=== PATIENT | female | born 1970 | race African-American/Black ===

== ENCOUNTER 2018-07-22 15:53 | Inpatient (IN) | payer BC, OTHER ==
--- NOTE | 2018-07-22 16:08 | ER Document Report ---
ED Medical Screen (RME) - General Chief Complaint: Vaginal Bleeding Stated Complaint: VAGINAL BLEEDING Time Seen by Provider: 07/22/18 16:00 Primary Care Provider: SHAHRAM KERR FNP-C [Primary Care Provider] - Follow up as needed Mode of Arrival: Ambulatory Information source: Patient Notes: Patient presents today with report that her provider sent her here for low hemoglobin. Patient reports she has been having heavy menstrual bleeding for the past months. She was told that her hemoglobin was 5.7. No other complaints such as fever vomiting diarrhea. She reports when she has her menses she has cramps. No bleeding or cramps at this time. I have greeted and performed a rapid initial assessment of this patient. A comprehensive ED assessment and evaluation of the patient, analysis of test results and completion of the medical decision making process will be conducted by additional ED providers. Dictation of this chart was performed using voice recognition software; therefore, there may be some unintended grammatical errors. TRAVEL OUTSIDE OF THE [place] IN LAST 30 DAYS: No - Related Data Allergies/Adverse Reactions: acetaminophen [From Darvocet-N 100] Allergy (Verified 07/22/18 15:53) aspirin [Aspirin] Allergy (Verified 07/22/18 15:53) buspirone HCl [From BuSpar] Allergy (Verified 07/22/18 15:53) clindamycin [Clindamycin] Allergy (Verified 07/22/18 15:53) codeine [Codeine] Allergy (Verified 07/22/18 15:53) erythromycin base [Erythromycin Base] Allergy (Verified 07/22/18 15:53) fluoxetine HCl [From Prozac] Allergy (Verified 07/22/18 15:53) imipramine [Imipramine] Allergy (Verified 07/22/18 15:53) nitrofurantoin [From Macrobid] Allergy (Verified 07/22/18 15:53) nitrofurantoin macrocrystalline [From Macrobid] Allergy (Verified 07/22/18 15:53) paroxetine HCl [From Paxil] Allergy (Verified 07/22/18 15:53) Penicillins Allergy (Verified 07/22/18 15:53) propoxyphene napsylate [From Darvocet-N 100] Allergy (Verified 07/22/18 15:53) Sulfa (Sulfonamide Antibiotics) Allergy (Verified 07/22/18 15:53) dairy Allergy (Uncoded 07/22/18 15:53) seafood Allergy (Uncoded 07/22/18 15:53) Past Medical History - Social History Family history: DM, Hypertension, Malignancy - colon Renal/ Medical History: Denies: Hx Peritoneal Dialysis Psychiatric Medical History: Reports: Hx Anxiety - panic attacks Past Surgical History: Reports: Hx Section, Hx Cholecystectomy, Hx Tubal Ligation - Immunizations Immunizations up to date: Yes Hx Diphtheria, Pertussis, Tetanus Vaccination: Yes Doctor's Discharge - Discharge Referrals: SHAHRAM KERR FNP-C [Primary Care Provider] - Follow up as needed
[2018-07-22 16:39] LABS: ABSOLUTE MONOCYTES (AUTO) 0.3 10^3/uL (0.1-1.4); ABSOLUTE NEUT (AUTO) 2.9 10^3/uL (1.7-8.2); BASOPHILS % (AUTO) 1.2 % (0-2); EOSINOPHILS % (AUTO) 0.4 % (0-6); HEMATOCRIT 19.6 % (36.0-47.0); LYMPHOCYTES % (AUTO) 23.5 % (13-45); MEAN CORPUSCULAR HEMOGLOBIN 17.1 pg (27.0-33.4); MEAN CORPUSCULAR HGB CONC 26.9 g/dL (32.0-36.0); MONOCYTES % (AUTO) 6.9 % (3-13); PLATELET COUNT 349 10^3/uL (150-450); RED BLOOD COUNT 3.07 10^6/uL (3.72-5.28); RED CELL DISTRIBUTION WIDTH 18.2 % (11.5-14.0); TOTAL CELLS COUNTED % (AUTO) 100 %; WHITE BLOOD COUNT 4.2 10^3/uL (4.0-10.5)
[2018-07-22 16:42] LABS: MEAN CORPUSCULAR VOLUME 64 fl (80-97)
[2018-07-22 16:46] LABS: HEMOGLOBIN 5.3 g/dL (12.0-15.5)
[2018-07-22 16:56] LABS: ALANINE AMINOTRANSFERASE 25 U/L (9-52); ALBUMIN 4.3 g/dL (3.5-5.0); ALKALINE PHOSPHATASE 58 U/L (38-126); ANION GAP 11 (5-19); ASPARTATE AMINO TRANSFERASE 25 U/L (14-36); BILIRUBIN,DIRECT 0.2 mg/dL (0.0-0.4); BILIRUBIN,TOTAL 0.4 mg/dL (0.2-1.3); BLOOD UREA NITROGEN 6 mg/dL (7-20); CALCIUM 9.7 mg/dL (8.4-10.2); CARBON DIOXIDE 26 mmol/L (22-30); CHLORIDE 104 mmol/L (98-107); GLUCOSE 97 mg/dL (75-110); POTASSIUM 3.3 mmol/L (3.6-5.0); SODIUM 140.6 mmol/L (137-145)
[2018-07-22 17:08] LABS: ANISOCYTOSIS 2+; HYPOCHROMASIA 3+; POIKILOCYTOSIS 1+
[2018-07-22 17:09] LABS: PLATELET COMMENT ADEQUATE; TARGET CELLS 1+; TEAR DROP CELLS SLIGHT
[2018-07-22 17:12] LABS: INTERNATIONAL RATION (INR) 0.97; PROTHROMBIN TIME 13.4 SEC (11.4-15.4)
[2018-07-22 17:13] LABS: PARTIAL THROMBOPLASTIN TIME 33.6 SEC (23.5-35.8)
[2018-07-22] MEDS ORDERED: LORAZEPAM INJ 2 MG/1 ML VIAL IV ONE (17:48)
--- NOTE | 2018-07-22 17:50 | RADIOLOGY REPORT (SQ) ---
EXAM DESCRIPTION: U/S NON-OB PELVIS W/O DOP COMPLETED DATE/TIME: 07/22/2018 5:39 pm REASON FOR STUDY: vag bleeding, ?fibroids LMP 07/07/2018 COMPARISON: None. TECHNIQUE: Dynamic and static grayscale images acquired of the pelvis via transabdominal approach an d recorded on PACS. Additional selected color Doppler and spectral images recorded. LIMITATIONS: None. FINDINGS: UTERUS: Enlarged. Multiple fibroids. The 2 largest measure 10.8 cm in largest diameter a nd 6.9 cm in largest diameter, respectively. ENDOMETRIAL STRIPE: Not seen. CERVIX: 2.5 cm. No nabothian cysts. RIGHT OVARY AND DOPPLER: The ovary not seen. LEFT OVARY AND DOPPLER: Ovary not seen. FREE FLUID: None noted. OTHER: No other significant finding. MEASUREMENTS: UTERUS: 15.6 x 15 x 10.4 cm. ENDOMETRIAL STRIPE: Not seen. RIGHT OVARY: Not seen. LEFT OVARY: Not seen. IMPRESSION: Enlarged uterus with multiple fibroids. TECHNICAL DOCUMENTATION: JOB ID: [id number] [email or web address]- All Rights Reserved Rev Reading location - IP/workstation name: [email or web address]
[2018-07-22] MEDS ORDERED: NORMAL SALINE 250 ML IV PRN (18:07)
--- NOTE | 2018-07-22 18:09 | ER Document Report ---
ED General - General Chief Complaint: Vaginal Bleeding Stated Complaint: VAGINAL BLEEDING Time Seen by Provider: 07/22/18 16:00 Mode of Arrival: Ambulatory Information source: Patient Notes: Patient presents with a report of anemia. Patient has had outpatient lab work done by her primary doctor and was called today and advised of her low H&H. Patient denies any abnormal bleeding or bruising. Patient does report heavy vaginal bleeding with her menstrual cycle that she has been experiencing over the past 7 months. Patient is presently not on her menstrual cycle. Patient denies any chest pain, dizziness or shortness of breath. Patient does complain of a history of anxiety and feels anxious now. TRAVEL OUTSIDE OF THE [place] IN LAST 30 DAYS: No - HPI Onset/Duration: Gradual Quality of pain: No pain Pain Level: Denies Associated symptoms: denies: Chest pain, Nonproductive cough, Productive cough, Fever, Headache, Nausea, Vomiting, Shortness of breath Exacerbated by: Denies Relieved by: Denies Similar symptoms previously: No Recently seen / treated by doctor: Yes - Related Data Allergies/Adverse Reactions: acetaminophen [From Darvocet-N 100] Allergy (Verified 07/22/18 15:53) aspirin [Aspirin] Allergy (Verified 07/22/18 15:53) buspirone HCl [From BuSpar] Allergy (Verified 07/22/18 15:53) clindamycin [Clindamycin] Allergy (Verified 07/22/18 15:53) codeine [Codeine] Allergy (Verified 07/22/18 15:53) erythromycin base [Erythromycin Base] Allergy (Verified 07/22/18 15:53) fluoxetine HCl [From Prozac] Allergy (Verified 07/22/18 15:53) imipramine [Imipramine] Allergy (Verified 07/22/18 15:53) nitrofurantoin [From Macrobid] Allergy (Verified 07/22/18 15:53) nitrofurantoin macrocrystalline [From Macrobid] Allergy (Verified 07/22/18 15:53) paroxetine HCl [From Paxil] Allergy (Verified 07/22/18 15:53) Penicillins Allergy (Verified 07/22/18 15:53) propoxyphene napsylate [From Darvocet-N 100] Allergy (Verified 07/22/18 15:53) Sulfa (Sulfonamide Antibiotics) Allergy (Verified 07/22/18 15:53) dairy Allergy (Uncoded 07/22/18 15:53) seafood Allergy (Uncoded 07/22/18 15:53) Past Medical History - General Information source: Patient - Social History Smoking Status: Never Smoker Frequency of alcohol use: None Drug Abuse: None Occupation: educational assistant Family History: Reviewed & Not Pertinent Patient has suicidal ideation: No Patient has homicidal ideation: No Renal/ Medical History: Denies: Hx Peritoneal Dialysis Psychiatric Medical History: Reports: Hx Anxiety - panic attacks Past Surgical History: Reports: Hx Section, Hx Cholecystectomy, Hx Tubal Ligation - Immunizations Immunizations up to date: Yes Hx Diphtheria, Pertussis, Tetanus Vaccination: Yes Review of Systems - Review of Systems Constitutional: No symptoms reported. denies: Fever, Recent illness EENT: No symptoms reported Cardiovascular: No symptoms reported. denies: Chest pain, Palpitations, Syncope, Dizziness, Lightheaded Respiratory: No symptoms reported. denies: Cough, Short of breath Gastrointestinal: No symptoms reported. denies: Abdominal pain, Vomiting Genitourinary: No symptoms reported. denies: Dysuria, Flank pain Female Genitourinary: Heavy/abnormal periods Musculoskeletal: No symptoms reported. denies: Back pain Hematologic/Lymphatic: No symptoms reported Neurological/Psychological: Anxiety. denies: Headaches Physical Exam - Vital signs Vitals: Temp Pulse Resp BP Pulse Ox 99.1 F 109 H 18 136/79 H 100 07/22/18 16:08 07/22/18 16:08 07/22/18 16:08 07/22/18 16:08 07/22/18 16:08 - General General appearance: Appears well, Alert, Anxious In distress: None - HEENT Head: Normocephalic, Atraumatic Eyes: Normal Conjunctiva: Normal Nasal: Normal Mouth/Lips: Other - Pale gingiva Mucous membranes: Normal Pharynx: Normal Neck: Normal, Supple. No: Lymphadenopathy - Respiratory Respiratory status: No respiratory distress Chest status: Nontender Breath sounds: Normal. No: Rales, Rhonchi, Stridor, Wheezing Chest palpation: Normal - Cardiovascular Rhythm: Tachycardia Heart sounds: S1 appreciated, S2 appreciated Murmur: No - Abdominal Inspection: Normal Distension: No distension Bowel sounds: Normal Tenderness: Nontender Organomegaly: No organomegaly - Genitourinary External exam: Normal Speculum exam: Cervix closed Vaginal bleeding: None Bimanuel exam: Normal. No: Cervical motion tender, Bladder/Urethral tender, Adnexal mass, Adnexal tenderness - Back Back: Normal, Nontender. No: CVA tenderness - Extremities General upper extremity: Normal inspection, Nontender, Normal ROM General lower extremity: Normal inspection, Nontender, Normal ROM - Neurological Neuro grossly intact: Yes Cognition: Normal Francisco Coma Scale Eye Opening: Spontaneous Francisco Coma Scale Verbal: Oriented [place] Coma Scale Motor: Obeys Commands Francisco Coma Scale Total: 15 - Psychological Associated symptoms: Anxious - Skin Skin Temperature: Warm Skin Moisture: Dry Skin Color: Pale Course - Re-evaluation Re-evalutation: 07/22/18 18:[address] Wharton regarding patient presentation and diagnostic evaluation. Recommends performing pelvic examination and consulting with on-c all ANESTHESIA RESIDENT for admission. Recommends transfusing 3 units packed cells at this time. Discussed plan of care with patient. Discussed risks of transfusions. Patient is agreeable except in this wrist and is agreeable to transfusion at this time. Patient does report a history of chronic anxiety and would like something to help settle her nerves at this time. Patient does continue tachycardic although has stable blood pressure at this time. 07/22/18 18:[address] Lord regarding patient presentation. Patient is not actively having vaginal bleeding and Dr. Lord recommends consultation with hospitalist for admission versus ANESTHESIA RESIDENT services as patient's anemia may have other causes, as she is not currently having any vaginal bleeding at this time. 07/22/18 19:[address] Monroe who does agree to accept patient for admission at this time. 07/22/18 19:52 Patient was worried about taking Ativan IV and would prefer to take oral tablet form. Patient updated on plan of care at this time and is agreeable with admission. - Vital Signs Vital signs: Temp Pulse Resp BP Pulse Ox 98.1 F 78 17 106/51 L 100 07/23/18 09:33 07/23/18 09:33 07/23/18 09:33 07/23/18 09:33 07/23/18 09:33 - Laboratory Result Diagrams: 07/23/18 05:54 07/23/18 05:54 Laboratory results interpreted by me: 07/22/18 07/22/18 07/22/18 16:11 16:11 16:11 RBC 3.07 L Hgb 5.3 L Hct 19.6 L MCV 64 L MCH 17.1 L MCHC 26.9 L RDW 18.2 H Potassium 3.3 L BUN 6 L Creatinine 0.48 L Iron TIBC Ferritin Crossmatch See Detail 07/22/18 16:11 RBC Hgb Hct MCV MCH MCHC RDW Potassium BUN Creatinine Iron 18.5 L TIBC 495 H Ferritin 2.35 L Crossmatch 07/22/18 18:37 Labs- Entire Visit 07/22/18 07/22/18 07/22/18 16:11 16:11 16:11 WBC 4.2 RBC 3.07 L Hgb 5.3 L Hct 19.6 L MCV 64 L MCH 17.1 L MCHC 26.9 L RDW 18.2 H Plt Count 349 Seg Neutrophils % 68.0 Lymphocytes % 23.5 Monocytes % 6.9 Eosinophils % 0.4 Basophils % 1.2 Absolute Neutrophils 2.9 Absolute Lymphocytes 1.0 Absolute Monocytes 0.3 Absolute Eosinophils 0.0 Absolute Basophils 0.0 Platelet Comment ADEQUATE Hypochromasia 3+ Poikilocytosis 1+ Anisocytosis 2+ Microcytosis 3+ Target Cells 1+ Tear Drop Cells SLIGHT PT INR APTT Sodium 140.6 Potassium 3.3 L Chloride 104 Carbon Dioxide 26 Anion Gap 11 BUN 6 L Creatinine 0.48 L Est GFR ( Amer) > 60 Est GFR (Non-Af Amer) > 60 Glucose 97 Calcium 9.7 Total Bilirubin 0.4 Direct Bilirubin 0.2 Neonat Total Bilirubin Not Reportable Neonat Direct Bilirubin Not Reportable Neonat Indirect Bili Not Reportable AST 25 ALT 25 Alkaline Phosphatase 58 Total Protein 8.0 Albumin 4.3 POC Stool Occult Blood Blood Type O POSITIVE Antibody Screen NEGATIVE Crossmatch See Detail 07/22/18 07/22/18 16:11 17:29 WBC RBC Hgb Hct MCV MCH MCHC RDW Plt Count Seg Neutrophils % Lymphocytes % Monocytes % Eosinophils % Basophils % Absolute Neutrophils Absolute Lymphocytes Absolute Monocytes Absolute Eosinophils Absolute Basophils Platelet Comment Hypochromasia Poikilocytosis Anisocytosis Microcytosis Target Cells Tear Drop Cells PT 13.4 INR 0.97 APTT 33.6 Sodium Potassium Chloride Carbon Dioxide Anion Gap BUN Creatinine Est GFR ( Amer) Est GFR (Non-Af Amer) Glucose Calcium Total Bilirubin Direct Bilirubin Neonat Total Bilirubin Neonat Direct Bilirubin Neonat Indirect Bili AST ALT Alkaline Phosphatase Total Protein Albumin POC Stool Occult Blood NEGATIVE Blood Type Antibody Screen Crossmatch - Diagnostic Test Radiology reviewed: Reports reviewed - EKG Interpretation by Me EKG shows normal: Sinus rhythm Rate: Normal Rhythm: NSR When compared to previous EKG there are: No significant change Discharge - Discharge Clinical Impression: Hypokalemia Anemia Qualifiers: Anemia type: unspecified type Qualified Code(s): D64.9 - Anemia, unspecified Condition: Stable Disposition: ADMITTED OBSERVATION Admitting Provider: Mabel (Hospitalist)
[2018-07-22] MEDS ORDERED: POTASSIUM CHLORIDE 20 MEQ PACKET PO ONE (18:37)
[2018-07-22] MEDS ORDERED: POTASSIUM CHLORIDE 10 MEQ CAPSULE.ER PO ONE ×2 (18:44→20:09)
[2018-07-22 18:57] LABS: EPITHELIALS (WET MOUNT) 3+ EPITHELIALS SEEN; RBCS (WET MOUNT) 1+ RBCS SEEN; T.VAGINALIS (WET MOUNT) NO TRICHOMONAS SEEN; WBCS (WET MOUNT) NO WBCS SEEN; YEAST (WET MOUNT) NO YEAST SEEN
[2018-07-22] MEDS ORDERED: LORAZEPAM 1 MG TABLET PO ONE (19:52)
[2018-07-22] MEDS ORDERED: ONDANSETRON HCL INJ/PF 4 MG/2 ML SDV IV PRN (20:02)
[2018-07-22] MEDS ORDERED: MAG HYDROX/AL HYDROX/SIMETH SUSP 30 ML UDCUP PO PRN (20:02)
[2018-07-22] MEDS ORDERED: MAGNESIUM HYDROXIDE SUSP 30 ML UDCUP PO PRN (20:02)
[2018-07-22] MEDS ORDERED: TEMAZEPAM 15 MG CAPSULE PO PRN (20:02)
[2018-07-22] MEDS ORDERED: LORAZEPAM 0.5 MG TABLET PO PRN (20:09)
[2018-07-22] MEDS ORDERED: TRAMADOL HCL 50 MG TABLET PO PRN (20:11)
--- NOTE | 2018-07-22 20:20 | PDOC CONSULTATION ---
Consultation Consult Date: 07/22/18 Attending physician:: ROBERTA MONROE Provider Consulted: YO BENDER Consult reason:: history of menorrhagia, not bleeding currently, anemia History of Present Illness Admission Date/PCP: KRISTIAN CASON Patient complains of: history of menorrhagia History of Present Illness: FAUSTINO GRAY is a 48 year old female (h/o C/s x 3) presents the the ER after being seen by PCM yesterday and having her yearly labs done. She reports that they called her today and told her to come to the ER due to anemia. She reports that she is tired and has palpitations but reports that this is not abnormal for her. She denies worsening fatigue or palpitations over the last several months. LMP was 07/07/2018 and was her new normal since approximately 1 yr ago when her menses became heavier. For the last year she reports menses heavier and lasting 5-7 days. 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 She does report flooding and clots. She reports that at the c/s of her last child she was told she had two fibroids and the provider did a f/u US several months after delivery and told her that they had gone away. She does not remember the last time she had a pap smear (maybe during her care for her pregnancies). She denies SOB. She denies h/o anemia or other medical problems. She reports monthly menses like clockwork. Since her LMP 07/07 lasting 5 days no bleeding since then. She denies intermenstrual bleeding. Her PCM placed a consult yesterday to Dr. avalos for colonoscopy as she has not had one before. Denies hemetemesis, hematochezia, Denies difficulty with stooling. Past Medical History LMP: 07/07/2018 Gynecological Infection: No Baby 1 Delivery: : Low Cervical, Transverse Baby 2 Delivery: : Low Cervical, Transverse Baby 3 Delivery: : Low Cervical, Transverse Cardiac Medical History: Denies: Atrial Fibrillation, Congestive Heart Failure, Coronary Artery Disease, DVT, Myocardial Infarction, Hyperlipidema, Hypertension, Pulmonary Embolism Pulmonary Medical History: Denies: Asthma, Chronic Obstructive Pulmonary Disease (COPD) EENT Medical History: Denies: Cataracts, Ears - Hearing aids Neurological Medical History: Denies: Hemorrhagic CVA, Ischemic CVA, Seizures Endocrine Medical History: Denies: Diabetes Mellitus Type 1, Diabetes Mellitus Type 2, Hyperthyroidism, Hypothyroidism Renal/ Medical History: Reports: Other - Menorrhagia as reported in the history of present illness Denies: Chronic Kidney Disease, Nephrolithiasis Malignancy Medical History: Reports: None GI Medical History: Denies: Cirrhosis, Hepatitis Musculoskeltal Medical History: Denies: Arthritis, Gout Skin Medical History: Denies: Eczema, Psoriasis Psychiatric Medical History: Reports: Other - Episodic anxiety as reported history of present illness Denies: Alcohol Dependency, Substance Abuse, Tobacco Dependency Traumatic Medical History: Reports: None Infectious Medical History: Reports: None Social History Information Source: Patient Lives with: Alone Smoking Status: Never Smoker Frequency of Alcohol Use: None Hx Recreational Drug Use: No Drugs: None Hx Prescription Drug Abuse: No - Advance Directive Resuscitation Status: Full Code Family History Family History: denies: CAD, DM, Hypertension, Malignancy Parental Family History Reviewed: No Children Family History Reviewed: NA Sibling(s) Family History Reviewed.: NA Medication/Allergy Home Medications: No Home Medications 07/22/18 Allergies/Adverse Reactions: acetaminophen [From Darvocet-N 100] Allergy (Verified 07/22/18 15:53) aspirin [Aspirin] Allergy (Verified 07/22/18 15:53) buspirone HCl [From BuSpar] Allergy (Verified 07/22/18 15:53) clindamycin [Clindamycin] Allergy (Verified 07/22/18 15:53) codeine [Codeine] Allergy (Verified 07/22/18 15:53) erythromycin base [Erythromycin Base] Allergy (Verified 07/22/18 15:53) fluoxetine HCl [From Prozac] Allergy (Verified 07/22/18 15:53) imipramine [Imipramine] Allergy (Verified 07/22/18 15:53) nitrofurantoin [From Macrobid] Allergy (Verified 07/22/18 15:53) nitrofurantoin macrocrystalline [From Macrobid] Allergy (Verified 07/22/18 15:53) paroxetine HCl [From Paxil] Allergy (Verified 07/22/18 15:53) Penicillins Allergy (Verified 07/22/18 15:53) propoxyphene napsylate [From Darvocet-N 100] Allergy (Verified 07/22/18 15:53) Sulfa (Sulfonamide Antibiotics) Allergy (Verified 07/22/18 15:53) dairy Allergy (Uncoded 07/22/18 15:53) seafood Allergy (Uncoded 07/22/18 15:53) Review of Systems Constitutional: ABSENT: chills, fatigue, fever(s), headache(s), weakness, weight gain, weight loss Breasts: PRESENT: as per HPI Cardiovascular: PRESENT: palpitations - she thinks these are due to her anxiety and has not seen a change in symptoms. ABSENT: chest pain, dyspnea on exertion, edema, orthropnea Gastrointestinal: PRESENT: abdominal pain - with menses, bloating. ABSENT: coffee ground emesis, constipation, diarrhea, heartburn, hematemesis, hematochezia, melena, nausea, vomiting Genitourinary: ABSENT: dysuria, hematuria Musculoskeletal: ABSENT: joint swelling Integumentary: ABSENT: rash, wounds Neurological: ABSENT: abnormal gait, abnormal speech, confusion, dizziness, focal weakness, syncope Psychiatric: ABSENT: anxiety, depression, homidical ideation, suicidal ideation Endocrine: PRESENT: menstrual abnormalities - see HPI. ABSENT: cold intolerance, heat intolerance, polydipsia, polyuria Hematologic/Lymphatic: ABSENT: easy bleeding, easy bruising Physical Exam - Physical Exam Vital Signs: Temp Pulse Resp BP Pulse Ox 98.7 F 101 H 18 146/78 H 100 07/22/18 20:08 07/22/18 20:08 07/22/18 20:08 07/22/18 20:08 07/22/18 20:08 Intake & Output 07/21/18 07/22/18 07/23/18 06:59 06:59 06:59 Intake Total 0 Balance 0 Weight 79 kg General appearance: PRESENT: no acute distress, well-developed, well-nourished Head exam: PRESENT: atraumatic, normocephalic Respiratory exam: PRESENT: clear to auscultation fletcher, symmetrical, unlabored Cardiovascular exam: PRESENT: RRR, +S1, +S2, tachycardia Pulses: PRESENT: normal dorsalis pedis pul, +2 pedal pulses bilateral GI/Abdominal exam: PRESENT: mass - Uterus very enlarged to approx 20+wks size, globular with fibroids palpable, normal bowel sounds, soft, tenderness - over uterus. ABSENT: distended, guarding, organolmegaly, rebound Rectal exam: PRESENT: deferred Extremities exam: PRESENT: full ROM. ABSENT: calf tenderness, clubbing, pedal edema Musculoskeletal exam: PRESENT: ambulatory Neurological exam: PRESENT: alert, awake, oriented to person, oriented to place, oriented to time, oriented to situation, CN II-XII grossly intact. ABSENT: motor sensory deficit Psychiatric exam: PRESENT: appropriate affect, normal mood. ABSENT: homicidal ideation, suicidal ideation Skin exam: PRESENT: dry, intact, warm. ABSENT: cyanosis, rash - Gynecological Exam Labia: not examined Urethra: not examined Perineum: not examined Uterus: masses, other - Uterus easily palpable on abdominal exam Result Laboratory Results: 07/22/18 16:11 07/22/18 16:11 07/22/18 07/22/18 07/22/18 16:11 16:11 16:11 WBC 4.2 RBC 3.07 L Hgb 5.3 L Hct 19.6 L MCV 64 L MCH 17.1 L MCHC 26.9 L RDW 18.2 H Plt Count 349 Seg Neutrophils % 68.0 Lymphocytes % 23.5 Monocytes % 6.9 Eosinophils % 0.4 Basophils % 1.2 Absolute Neutrophils 2.9 Absolute Lymphocytes 1.0 Absolute Monocytes 0.3 Absolute Eosinophils 0.0 Absolute Basophils 0.0 Sodium 140.6 Potassium 3.3 L Chloride 104 Carbon Dioxide 26 Anion Gap 11 BUN 6 L Creatinine 0.48 L Est GFR ( Amer) > 60 Est GFR (Non-Af Amer) > 60 Glucose 97 Calcium 9.7 Magnesium Total Bilirubin 0.4 AST 25 ALT 25 Alkaline Phosphatase 58 Total Protein 8.0 Albumin 4.3 Blood Type O POSITIVE Antibody Screen NEGATIVE 07/22/18 16:11 WBC RBC Hgb Hct MCV MCH MCHC RDW Plt Count Seg Neutrophils % Lymphocytes % Monocytes % Eosinophils % Basophils % Absolute Neutrophils Absolute Lymphocytes Absolute Monocytes Absolute Eosinophils Absolute Basophils Sodium Potassium Chloride Carbon Dioxide Anion Gap BUN Creatinine Est GFR ( Amer) Est GFR (Non-Af Amer) Glucose Calcium Magnesium 2.0 Total Bilirubin AST ALT Alkaline Phosphatase Total Protein Albumin Blood Type Antibody Screen Impressions: Pelvis Ultrasound 07/22/18 16:07 IMPRESSION: Enlarged uterus with multiple fibroids. Status: Imported from PACS Assessment & Plan - Diagnosis (1) Hypochromic microcytic anemia Is this a current diagnosis for this admission?: Yes Plan: patient being admitted to medicine probably to 4th floor. Appreciate consult from Dr. Monroe and thank you for caring for this sweet patient while she is admitted for anemia w/u and tranfusion. Agree with rest of anemia w/u (ferritin, B12, folate, etc). Would add TSH - appears to be ordered already by primary team. Reviewed with patient may need to consult with Hematology as an outpatient in the future for iron infusions in interim while optimizing treatment for fibroid uterus. She reports that she is going to see Dr. avalos for colonoscopy to r/o GI as source of bleeding for anemia. Hemocult in the ER is negative. (2) Fibroid uterus Qualifiers: Uterine leiomyoma location: intramural, submucous, and subserous Qualified Code(s): D25.1 - Intramural leiomyoma of uterus; D25.0 - Submucous leiomyoma of uterus; D25.2 - Subserosal leiomyoma of uterus Is this a current diagnosis for this admission?: Yes Plan: Reviewed options for treatment of significantly enlarged firboid uterus: COCPs, IUD, DepotLupron, hysterectomy. DepotLupron and other medical management discussed with patient as temporizing measure likely to bridge to hysterectomy in order to decrease bleeding with menses and optimize Hct for surgical options. Due to size of uterus open BILL would be recommended. Pt has just received ativan and is sleepy so will address these options with patient again. (3) Menorrhagia with regular cycle Is this a current diagnosis for this admission?: Yes Plan: menorrhagia likely due to symptomatic fibroid uterus. However, patient has not had pap smear in a very long time and needs to have pap smear to r/o cervical cancer or other pathology. Also recommended since unable to evaluate the ES on US that needs to have EMBx in office. Pt is well known to me through her daughter and she agrees to come see me in the office for pap, EMBx and completion of w/u before her next menstrual cycle in 2 wks so that therapy can be initiated to help mitigate the bleeding from her menstrual cycle until definitive treatment can be achieved. She does not seem excited about the prospect of surgical options but will address this with her again in the office. - Time Time Spent: 30 to 50 Minutes Critical Time spent with patient: Less than 15 minutes Medications reviewed and adjusted accordingly: Yes Anticipated discharge: Home Within: within 24 hours - Inpatient Certification Based on my medical assessment, after consideration of the patient's comorbidities, presenting symptoms, or acuity I expect that the services needed warrant INPATIENT care.: Yes I certify that my determination is in accordance with my understanding of Medicare's requirements for reasonable and necessary INPATIENT services [42 CFR 412.3e].: Yes Medical Necessity: Failure to Improve With Outpatient Therapy, Need Close Monitoring Due to Risk of Patient Decompensation, Need For IV Fluids, Other - Needs for transfusion. Unable to complete in the ER. Post Hospital Care: D/C Metal Treater Documentation
[2018-07-22 20:24] LABS: CHLAM PCR NOT DETECTED (NOT DETECT); GON PCR NOT DETECTED (NOT DETECT)
[2018-07-22 20:42] LABS: ABSOLUTE RETICS # 0.057 10^6/uL (0.028-0.122)
[2018-07-22 20:53] LABS: IRON(TIBC) 18.5 ug/dL (37-170)
[2018-07-22 21:07] LABS: APPEARANCE,URINE CLEAR; BILIRUBIN,URINE NEGATIVE (NEGATIVE); COLOR,URINE STRAW; GLUCOSE, URINE NEGATIVE (NEGATIVE); KETONES,URINE NEGATIVE (NEGATIVE); LEUKOCYTE ESTERASE,URINE NEGATIVE (NEGATIVE); NITRITE,URINE NEGATIVE (NEGATIVE); PROTEIN,URINE NEGATIVE (NEGATIVE); URINE SPECIFIC GRAVITY 1.006; UROBILINOGEN,URINE NEGATIVE mg/dL (<2.0)
[2018-07-22 21:26] LABS: URINE AMPHETAMINES SCREEN NEGATIVE; URINE BARBITURATES SCREEN NEGATIVE; URINE BENZODIAZEPINES SCREEN NEGATIVE; URINE COCAINE SCREEN NEGATIVE; URINE MARIJUANA (THC) SCREEN NEGATIVE; URINE METHADONE SCREEN NEGATIVE; URINE PHENCYCLIDINE SCREEN NEGATIVE
[2018-07-22 21:28] LABS: FERRITIN 2.35 ng/mL (11.1-264.0)
--- NOTE | 2018-07-22 22:45 | PDOC H&P ---
History of Present Illness Admission Date/PCP: 07/22/2018 TESSY CASON-Shiva Patient complains of: Abnormal lab work (anemia) History of Present Illness: FAUSTINO GRAY is a 48 year old female who presented to the emergency room at the direction of her primary care provider because she had abnormal lab work which showed a severe anemia that would require further evaluation and blood tr ansfusion. She admits that she had lab work performed by her primary care provider and was notified today that she had a severe anemia and needed to be seen in the emergency room. She denies symptoms other than intermittent episodes of anxiety, mild bilateral eye dryness and a persistent mild tach ycardia which has been present for several days or longer. She further admits that she has been experiencing very heavy, but regular menstrual periods for many months and has not sought medical attention for this. She denies prior similar episodes and has not identified any other aggravating or ameliorating factors for her anemia. In the emergency room she was found to have hemoglobin of 5.3 with hematocrit of 19.6 as well as a mild tachycardia. Evaluation of her pelvis via ultrasound showed a fibroid uterus and pelvic examination confirmed that finding with a negative stool guaiac also being noted. With these findings patient was admitted to the hospital for further evaluation and treatment. Past Medical History Cardiac Medical History: Denies: Atrial Fibrillation, Congestive Heart Failure, Coronary Artery Disease, DVT, Myocardial Infarction, Hyperlipidema, Hypertension, Pulmonary Embolism Pulmonary Medical History: Denies: Asthma, Chronic Obstructive Pulmonary Disease (COPD) EENT Medical History: Reports: Eyes - Does not require prescription lenses Denies: Cataracts, Ears - Hearing aids Neurological Medical History: Denies: Hemorrhagic CVA, Ischemic CVA, Seizures Endocrine Medical History: Denies: Diabetes Mellitus Type 1, Diabetes Mellitus Type 2, Hyperthyroidism, Hypothyroidism Renal/ Medical History: Reports: Other - Menorrhagia as reported in the history of present illness Denies: Chronic Kidney Disease, Nephrolithiasis Malignancy Medical History: Reports: None GI Medical History: Denies: Cirrhosis, Hepatitis Musculoskeltal Medical History: Denies: Arthritis, Gout Skin Medical History: Denies: Eczema, Psoriasis Psychiatric Medical History: Reports: Other - Episodic anxiety as reported history of present illness Denies: Alcohol Dependency, Substance Abuse, Tobacco Dependency Traumatic Medical History: Reports: None Hematology: Reports: Anemia - As reported in history of present Denies: Bleeding Tendencies Infectious Medical History: Reports: None Past Surgical History Past Surgical History: Reports: Section - X3, Cholecystectomy, Tubal Ligation Social History Information Source: Patient Lives with: Alone Smoking Status: Never Smoker Frequency of Alcohol Use: None Hx Recreational Drug Use: No Drugs: None Hx Prescription Drug Abuse: No - Advance Directive Resuscitation Status: Full Code Surrogate healthcare decision maker:: Martha Arroyo her daughter Family History Family History: CAD, DM, Hypertension, Malignancy, Other - Uterine fibroids Parental Family History Reviewed: Yes Children Family History Reviewed: No Sibling(s) Family History Reviewed.: Yes Medication/Allergy Home Medications: No Home Medications 07/22/18 Allergies/Adverse Reactions: acetaminophen [From Darvocet-N 100] Allergy (Verified 07/22/18 15:53) aspirin [Aspirin] Allergy (Verified 07/22/18 15:53) buspirone HCl [From BuSpar] Allergy (Verified 07/22/18 15:53) clindamycin [Clindamycin] Allergy (Verified 07/22/18 15:53) codeine [Codeine] Allergy (Verified 07/22/18 15:53) erythromycin base [Erythromycin Base] Allergy (Verified 07/22/18 15:53) fluoxetine HCl [From Prozac] Allergy (Verified 07/22/18 15:53) imipramine [Imipramine] Allergy (Verified 07/22/18 15:53) nitrofurantoin [From Macrobid] Allergy (Verified 07/22/18 15:53) nitrofurantoin macrocrystalline [From Macrobid] Allergy (Verified 07/22/18 15:53) paroxetine HCl [From Paxil] Allergy (Verified 07/22/18 15:53) Penicillins Allergy (Verified 07/22/18 15:53) propoxyphene napsylate [From Darvocet-N 100] Allergy (Verified 07/22/18 15:53) Sulfa (Sulfonamide Antibiotics) Allergy (Verified 07/22/18 15:53) dairy Allergy (Uncoded 07/22/18 15:53) seafood Allergy (Uncoded 07/22/18 15:53) Review of Systems Constitutional: ABSENT: chills, fever(s) Eyes: PRESENT: as per HPI, other - Bilateral dryness of the eyes. ABSENT: visual disturbances Ears: ABSENT: hearing changes, other - Ear pain Nose, Mouth, and Throat: ABSENT: mouth pain, sore throat Cardiovascular: PRESENT: as per HPI, other - Mild tachycardia. ABSENT: chest pain, dyspnea on exertion, edema, orthropnea, palpitations Respiratory: ABSENT: cough, dyspnea Gastrointestinal: ABSENT: abdominal pain, constipation, diarrhea, nausea, vomiting Genitourinary: PRESENT: as per HPI, other - Menorrhagia. ABSENT: dysuria, h ematuria Musculoskeletal: ABSENT: back pain, joint swelling, muscle weakness Integumentary: ABSENT: pruritus, rash Neurological: ABSENT: confusion, convulsions, focal weakness, memory loss, syncope Psychiatric: PRESENT: as per HPI, anxiety - Episodic. ABSENT: depression Endocrine: ABSENT: cold intolerance, heat intolerance Hematologic/Lymphatic: ABSENT: easy bleeding, easy bruising Physical Exam Vital Signs: Temp Pulse Resp BP Pulse Ox 99.1 F 109 H 21 H 133/69 H 100 07/22/18 16:08 07/22/18 16:08 07/22/18 18:31 07/22/18 18:31 07/22/18 18:31 Intake & Output 07/20/18 07/21/18 07/22/18 23:59 23:59 23:59 Weight 79 kg General appearance: PRESENT: no acute distress, cooperative Head exam: PRESENT: atraumatic, normocephalic Eye exam: PRESENT: conjunctiva pale. ABSENT: nystagmus, scleral icterus Ear exam: PRESENT: normal external ear exam. ABSENT: bleeding, drainage Mouth exam: PRESENT: dry mucosa, neck supple Neck exam: ABSENT: thyromegaly, tracheal deviation Respiratory exam: PRESENT: clear to auscultation fletcher, symmetrical, unlabored Cardiovascular exam: PRESENT: RRR, tachycardia. ABSENT: clicks, gallop, rubs Pulses: PRESENT: normal radial pulses, normal dorsalis pedis pul Vascular exam: PRESENT: normal capillary refill, pallor - Mild pallor GI/Abdominal exam: PRESENT: normal bowel sounds, soft Rectal exam: PRESENT: deferred Extremities exam: ABSENT: joint swelling, pedal edema Musculoskeletal exam: PRESENT: full ROM, normal inspection Neurological exam: PRESENT: alert, oriented to person, oriented to place, oriented to time, oriented to situation, CN II-XII grossly intact. ABSENT: motor sensory deficit Psychiatric exam: PRESENT: appropriate affect, normal mood Skin exam: PRESENT: dry, intact, pallor - Mild pallor, warm. ABSENT: jaundice, rash, urticaria Results Laboratory Results: 07/22/18 16:11 07/22/18 16:11 07/22/18 07/22/18 07/22/18 16:11 16:11 16:11 WBC 4.2 RBC 3.07 L Hgb 5.3 L Hct 19.6 L MCV 64 L MCH 17.1 L MCHC 26.9 L RDW 18.2 H Plt Count 349 Seg Neutrophils % 68.0 Lymphocytes % 23.5 Monocytes % 6.9 Eosinophils % 0.4 Basophils % 1.2 Absolute Neutrophils 2.9 Absolute Lymphocytes 1.0 Absolute Monocytes 0.3 Absolute Eosinophils 0.0 Absolute Basophils 0.0 Sodium 140.6 Potassium 3.3 L Chloride 104 Carbon Dioxide 26 Anion Gap 11 BUN 6 L Creatinine 0.48 L Est GFR ( Amer) > 60 Est GFR (Non-Af Amer) > 60 Glucose 97 Calcium 9.7 Magnesium Total Bilirubin 0.4 AST 25 ALT 25 Alkaline Phosphatase 58 Total Protein 8.0 Albumin 4.3 Blood Type O POSITIVE Antibody Screen NEGATIVE 07/22/18 16:11 WBC RBC Hgb Hct MCV MCH MCHC RDW Plt Count Seg Neutrophils % Lymphocytes % Monocytes % Eosinophils % Basophils % Absolute Neutrophils Absolute Lymphocytes Absolute Monocytes Absolute Eosinophils Absolute Basophils Sodium Potassium Chloride Carbon Dioxide Anion Gap BUN Creatinine Est GFR ( Amer) Est GFR (Non-Af Amer) Glucose Calcium Magnesium 2.0 Total Bilirubin AST ALT Alkaline Phosphatase Total Protein Albumin Blood Type Antibody Screen Impressions: Pelvis Ultrasound 07/22/18 16:07 IMPRESSION: Enlarged uterus with multiple fibroids. Assessment and Plan - Diagnosis (1) Hypochromic microcytic anemia Is this a current diagnosis for this admission?: Yes Plan: Patient will be admitted for further evaluation. She will receive 3 units of packed red blood cells in transfusion. Anemia work-up including anemia profile and stool for occult blood x3 will be obtained. Patient's anemia will be monitored with daily CBCs. Patient will be started on an vitamin once daily. (2) Fibroid uterus Qualifiers: Uterine leiomyoma location: intramural, submucous, and subserous Qualified Code(s): D25.1 - Intramural leiomyoma of uterus; D25.0 - Submucous leiomyoma of uterus; D25.2 - Subserosal leiomyoma of uterus Is this a current diagnosis for this admission?: Yes Plan: A CRYSTALLIZER OPERATOR and consult will be obtained for further evaluation. (3) Menorrhagia with regular cycle Is this a current diagnosis for this admission?: Yes Plan: A CRYSTALLIZER OPERATOR consult will be obtained for further evaluation. (4) Hypokalemia Is this a current diagnosis for this admission?: Yes Plan: Patient's hypokalemia will be monitored with daily metabolic profiles and magnesium levels. Potassium repletion will be provided as required. - Time Time Spent with patient: 25-34 minutes Medications reviewed and adjusted accordingly: No - No meds Anticipated discharge: Home - Inpatient Certification Based on my medical assessment, after consideration of the patient's comorbidities, presenting symptoms, or acuity I expect that the services needed warrant INPATIENT care.: Yes I certify that my determination is in accordance with my understanding of Medicare's requirements for reasonable and necessary INPATIENT services [42 CFR 412.3e].: Yes Medical Necessity: Need Close Monitoring Due to Risk of Patient Decompensation, Need For IV Fluids, Need for Surgery - CRYSTALLIZER OPERATOR consultation and possible surgery, Risk of Complication if Not Cared For in Hospital, Risk of Diagnosis Which Will Require Inpatient Eval/Care/Monitoring, Other - Need for blood transfusion and monitoring of anemia.
[2018-07-23] MEDS: HEPARIN SOD (PORCINE) 5,000 UNIT/ML 1 ML SYRINGE SUBCUT SCH ×3 (00:21→13:17)
[2018-07-23] MEDS: FAMOTIDINE 20 MG TABLET PO SCH ×2 (00:21→09:44)
[2018-07-23 06:17] LABS: HEMATOCRIT 23.5 % (36.0-47.0); MEAN CORPUSCULAR HEMOGLOBIN 21.1 pg (27.0-33.4); PLATELET COUNT 257 10^3/uL (150-450); RED BLOOD COUNT 3.34 10^6/uL (3.72-5.28); RED CELL DISTRIBUTION WIDTH 24.4 % (11.5-14.0)
[2018-07-23 06:19] LABS: INTERNATIONAL RATION (INR) 1.05; PROTHROMBIN TIME 14.3 SEC (11.4-15.4)
[2018-07-23 06:20] LABS: PARTIAL THROMBOPLASTIN TIME 36.1 SEC (23.5-35.8)
[2018-07-23 06:31] LABS: ANION GAP 7 (5-19); BLOOD UREA NITROGEN 5 mg/dL (7-20); CALCIUM 9.4 mg/dL (8.4-10.2); CARBON DIOXIDE 24 mmol/L (22-30); CHLORIDE 108 mmol/L (98-107); CHOLESTEROL 100.36 mg/dL (0-200); GLUCOSE 77 mg/dL (75-110); SODIUM 139.3 mmol/L (137-145); TRIGLYCERIDES 32 mg/dL (<150)
[2018-07-23 06:36] LABS: HEMOGLOBIN 7.1 g/dL (12.0-15.5)
[2018-07-23 06:37] LABS: MEAN CORPUSCULAR VOLUME 71 fl (80-97)
[2018-07-23 06:42] LABS: DIRECT LDL 54 mg/dL (<100)
[2018-07-23 06:47] LABS: FREE T3 3.76 pg/mL (2.77-5.27); FREE T4 (FREE THYROXINE) 1.05 ng/dL (0.78-2.19)
[2018-07-23 07:00] LABS: THYROID STIMULATING HORMONE 2.88 uIU/mL (0.47-4.68)
[2018-07-23] MEDS: DOCUSATE SODIUM 100 MG CAPSULE PO SCH ×2 (09:44→17:34)
[2018-07-23] MEDS: PRENATAL VITAMIN W DHA CAPSULE PO SCH ×2 (09:45→09:46)
[2018-07-23 10:38] LABS: PATH REVIEW PATHOLOGIST REVIEWED
[2018-07-23 15:16] LABS: HEMATOCRIT 27.8 % (36.0-47.0); HEMOGLOBIN 8.5 g/dL (12.0-15.5); MEAN CORPUSCULAR HEMOGLOBIN 21.9 pg (27.0-33.4); MEAN CORPUSCULAR HGB CONC 30.4 g/dL (32.0-36.0); MEAN CORPUSCULAR VOLUME 72 fl (80-97); PLATELET COUNT 280 10^3/uL (150-450); RED BLOOD COUNT 3.87 10^6/uL (3.72-5.28); RED CELL DISTRIBUTION WIDTH 24.4 % (11.5-14.0); WHITE BLOOD COUNT 5.1 10^3/uL (4.0-10.5)
--- NOTE | 2018-07-23 19:28 | PDOC PROGRESS REPORT ---
Subjective Progress Note for:: 07/23/18 Subjective:: FAUSTINO GRAY is a 48 year old female with a PMH of menorrhagia. She presented to the emergency room at the direction of her primary care provider because she had abnormal lab work which showed a severe anemia (Hgb 5.3). The patient was seen on rounds following her PRBC transfusions. She states she feels "much better." Denies abdominal pain, nausea, weakness or SOB. Abdomen is NT/ND. Semi-solid mass can be palpated just below the umbilicus. Likely her uter ine fibroids. They are not TTP. Unfortunately, the patient's Hgb did not completely respond appropriately to the transfusions. Following 4 units, the Hgb should rise 5.3-->9.3. Her post transfusion Hgb was 8.5. The patient will remain at [facility] overnight for serial CBC evaluations. If stable, she may go home tomorrow morning with OBGYN follow up. Reason For Visit: ANEMIA Physical Exam Vital Signs: Temp Pulse Resp BP Pulse Ox 98.6 F 76 17 118/53 L 100 07/23/18 15:51 07/23/18 15:51 07/23/18 15:51 07/23/18 15:51 07/23/18 15:51 Intake & Output 07/22/18 07/23/18 07/24/18 06:59 06:59 06:59 Intake Total 1150 1925 Output Total 400 1400 Balance 750 525 Weight 79 kg General appearance: PRESENT: no acute distress, well-developed, well-nourished Head exam: PRESENT: atraumatic, normocephalic Eye exam: PRESENT: conjunctiva pink, EOMI, PERRLA. ABSENT: scleral icterus Ear exam: PRESENT: normal external ear exam Mouth exam: PRESENT: moist, tongue midline Neck exam: ABSENT: carotid bruit, JVD, lymphadenopathy, thyromegaly Respiratory exam: PRESENT: clear to auscultation fletcher. ABSENT: rales, rhonchi, wheezes Cardiovascular exam: PRESENT: RRR. ABSENT: diastolic murmur, rubs, systolic murmur Pulses: PRESENT: normal radial pulses, normal dorsalis pedis pul Vascular exam: PRESENT: normal capillary refill GI/Abdominal exam: PRESENT: normal bowel sounds, soft - SEMI-SOLID MASS CAN BE PALPATED JUST BELOW THE UMBILICUS. ABSENT: distended, guarding, mass, organolmegaly, rebound, tenderness Rectal exam: PRESENT: deferred Extremities exam: PRESENT: full ROM. ABSENT: calf tenderness, clubbing, pedal edema Neurological exam: PRESENT: alert, awake, oriented to person, oriented to place, oriented to time, oriented to situation Psychiatric exam: PRESENT: appropriate affect, normal mood Skin exam: PRESENT: dry, intact, warm. ABSENT: cyanosis, rash Results Laboratory Results: 07/23/18 14:50 07/23/18 05:54 07/22/18 07/22/18 07/22/18 16:11 16:11 16:11 WBC RBC Hgb Hct MCV MCH MCHC RDW Plt Count Retic Count (auto) 1.90 Absolute Retic 0.057 Sodium Potassium Chloride Carbon Dioxide Anion Gap BUN Creatinine Est GFR ( Amer) Est GFR (Non-Af Amer) Glucose Calcium Magnesium Iron 18.5 L TIBC 495 H % Saturation 4 Ferritin 2.35 L Triglycerides Cholesterol LDL Cholesterol Direct VLDL Cholesterol HDL Cholesterol Vitamin B12 514.0 Folate 16.10 TSH Free T4 Free T3 pg/mL Urine Color Urine Appearance Urine pH Ur Specific [place] Urine Protein Urine Glucose (UA) Urine Ketones Urine Blood Urine Nitrite Ur Leukocyte Esterase Urine WBC (Auto) Blood Type O POSITIVE Antibody Screen NEGATIVE 07/22/18 07/23/18 07/23/18 16:11 05:54 05:54 WBC 4.0 RBC 3.34 L Hgb 7.1 L Hct 23.5 L MCV 71 L D MCH 21.1 L MCHC 30.0 L RDW 24.4 H Plt Count 257 Retic Count (auto) Absolute Retic Sodium 139.3 Potassium 4.0 Chloride 108 H Carbon Dioxide 24 Anion Gap 7 BUN 5 L Creatinine 0.48 L Est GFR ( Amer) > 60 Est GFR (Non-Af Amer) > 60 Glucose 77 Calcium 9.4 Magnesium 2.0 Iron TIBC % Saturation Ferritin Triglycerides 32 Cholesterol 100.36 LDL Cholesterol Direct 54 VLDL Cholesterol 6.0 L HDL Cholesterol 48 Vitamin B12 Folate TSH Free T4 Free T3 pg/mL Urine Color STRAW Urine Appearance CLEAR Urine pH 7.0 Ur Specific [place] 1.006 Urine Protein NEGATIVE Urine Glucose (UA) NEGATIVE Urine Ketones NEGATIVE Urine Blood NEGATIVE Urine Nitrite NEGATIVE Ur Leukocyte Esterase NEGATIVE Urine WBC (Auto) 0 Blood Type Antibody Screen 07/23/18 07/23/18 05:54 14:50 WBC 5.1 RBC 3.87 Hgb 8.5 L Hct 27.8 L MCV 72 L MCH 21.9 L MCHC 30.4 L RDW 24.4 H Plt Count 280 Retic Count (auto) Absolute Retic Sodium Potassium Chloride Carbon Dioxide Anion Gap BUN Creatinine Est GFR ( Amer) Est GFR (Non-Af Amer) Glucose Calcium Magnesium Iron TIBC % Saturation Ferritin Triglycerides Cholesterol LDL Cholesterol Direct VLDL Cholesterol HDL Cholesterol Vitamin B12 Folate TSH 2.88 Free T4 1.05 Free T3 pg/mL 3.76 Urine Color Urine Appearance Urine pH Ur Specific [place] Urine Protein Urine Glucose (UA) Urine Ketones Urine Blood Urine Nitrite Ur Leukocyte Esterase Urine WBC (Auto) Blood Type Antibody Screen Impressions: Pelvis Ultrasound 07/22/18 16:07 IMPRESSION: Enlarged uterus with multiple fibroids. Status: Imported from PACS Assessment and Plan - Diagnosis (1) Anemia Qualifiers: Anemia type: unspecified type Qualified Code(s): D64.9 - Anemia, unspecified Is this a current diagnosis for this admission?: Yes Plan: Secondary to menorrhagia Initial Hgb 5.3 No site of active bleeding LMP July 07, 2018 Transfused 4U PRBC Continue q6h CBC (2) Fibroid uterus Qualifiers: Uterine leiomyoma location: intramural, submucous, and subserous Qualified Code(s): D25.1 - Intramural leiomyoma of uterus; D25.0 - Submucous leiomyoma of uterus; D25.2 - Subserosal leiomyoma of uterus Is this a current diagnosis for this admission?: Yes Plan: Management per OBGYN (3) Menorrhagia with regular cycle Is this a current diagnosis for this admission?: Yes Plan: Secondary to uterine fibroids Severe bleeding during 5 days of her menses Discussed treatment options with Dr. Lord - COCPs, IUD, DepotLupron, hysterectomy - Time Time Spent with patient: 15-24 minutes Medications reviewed and adjusted accordingly: Yes Anticipated discharge: Home Within: within 24 hours - Inpatient Certification Based on my medical assessment, after consideration of the patient's comorbidities, presenting symptoms, or acuity I expect that the services needed warrant INPATIENT care.: Yes I certify that my determination is in accordance with my understanding of Medicare's requirements for reasonable and necessary INPATIENT services [42 CFR 412.3e].: Yes Medical Necessity: Need Close Monitoring Due to Risk of Patient Decompensation, Risk of Complication if Not Cared For in Hospital
[2018-07-23 21:20] LABS: HEMATOCRIT 27.3 % (36.0-47.0); HEMOGLOBIN 8.3 g/dL (12.0-15.5); MEAN CORPUSCULAR HGB CONC 30.6 g/dL (32.0-36.0); MEAN CORPUSCULAR VOLUME 72 fl (80-97); PLATELET COUNT 263 10^3/uL (150-450); RED BLOOD COUNT 3.79 10^6/uL (3.72-5.28); RED CELL DISTRIBUTION WIDTH 25.1 % (11.5-14.0); WHITE BLOOD COUNT 5.4 10^3/uL (4.0-10.5)
[2018-07-24] MEDS: HEPARIN SOD (PORCINE) 5,000 UNIT/ML 1 ML SYRINGE SUBCUT SCH ×2 (02:05→07:05)
[2018-07-24] MEDS: FAMOTIDINE 20 MG TABLET PO SCH ×2 (02:05→09:10)
[2018-07-24 03:46] LABS: HEMATOCRIT 27.8 % (36.0-47.0); HEMOGLOBIN 8.6 g/dL (12.0-15.5); MEAN CORPUSCULAR HEMOGLOBIN 21.8 pg (27.0-33.4); MEAN CORPUSCULAR HGB CONC 30.8 g/dL (32.0-36.0); MEAN CORPUSCULAR VOLUME 71 fl (80-97); PLATELET COUNT 266 10^3/uL (150-450); RED BLOOD COUNT 3.92 10^6/uL (3.72-5.28); RED CELL DISTRIBUTION WIDTH 25.4 % (11.5-14.0); WHITE BLOOD COUNT 4.9 10^3/uL (4.0-10.5)
[2018-07-24 04:07] LABS: ANION GAP 10 (5-19); BLOOD UREA NITROGEN 8 mg/dL (7-20); CALCIUM 9.4 mg/dL (8.4-10.2); CARBON DIOXIDE 23 mmol/L (22-30); CHLORIDE 108 mmol/L (98-107); GLUCOSE 85 mg/dL (75-110); POTASSIUM 3.9 mmol/L (3.6-5.0); SODIUM 140.7 mmol/L (137-145)
[2018-07-24 08:20] LABS: HEMATOCRIT 28.1 % (36.0-47.0); HEMOGLOBIN 8.6 g/dL (12.0-15.5); MEAN CORPUSCULAR HGB CONC 30.6 g/dL (32.0-36.0); MEAN CORPUSCULAR VOLUME 72 fl (80-97); PLATELET COUNT 259 10^3/uL (150-450); RED BLOOD COUNT 3.92 10^6/uL (3.72-5.28); RED CELL DISTRIBUTION WIDTH 24.8 % (11.5-14.0); WHITE BLOOD COUNT 4.5 10^3/uL (4.0-10.5)
[2018-07-24] MEDS: DOCUSATE SODIUM 100 MG CAPSULE PO SCH (09:10)
[2018-07-24] MEDS: PRENATAL VITAMIN W DHA CAPSULE PO SCH (09:10)
[2018-07-24 13:22] VITALS: BP 114/60
--- NOTE | 2018-07-29 22:11 | PDOC DISCHARGE SUMMARY ---
General - Admit/Disc Date/PCP Admission Date/Primary Care Provider: 07/22/18 20:22 SHAHRAM KERRKRISTIAN Discharge Date: 07/24/18 - Discharge Diagnosis (1) Anemia Is this a current diagnosis for this admission?: Yes (2) Fibroid uterus Is this a current diagnosis for this admission?: Yes (3) Menorrhagia with regular cycle Is this a current diagnosis for this admission?: Yes - Additional Information Resuscitation Status: Full Code Discharge Diet: As Tolerated Discharge Activity: Activity As Tolerated Home Medications: No Home Medications 07/22/18 History of Present Illness History of Present Illness: FAUSTINO GRAY is a 48 year old female who presented to the emergency room at the direction of her primary care provider because she had abnormal lab work which showed a severe anemia that would require further evaluation and blood transfusion. She admits that she had lab work performed by her primary care provider and was notified today that she had a severe anemia and needed to be seen in the emergency room. She denies symptoms other than intermittent episodes of anxiety, mild bilateral eye dryness and a persistent mild tachycardia which has been present for several days or longer. She further admits that she has been experiencing very heavy, but regular menstrual periods for many months and has not sought medical attention for this. She denies prior similar episodes and has not identified any other aggravating or ameliorating factors for her anemia. In the emergency room she was found to have hemoglobin of 5.3 with hematocrit of 19.6 as well as a mild tachycardia. Evaluation of her pelvis via ultrasound showed a fibroid uterus and pelvic examination confirmed that finding with a negative stool guaiac also being noted. With these findings patient was admitted to the hospital for further evaluation and treatment. Hospital Course Hospital Course: FAUSTINO GRAY is a 48 year old female with a PMH of menorrhagia. She presented to the emergency room at the direction of her primary care provider because she had abnormal lab work which showed a severe anemia (Hgb 5.3). Abdomen is NT/ND. Semi-solid mass can be palpated just below the umbilicus. Likely her uterine fibroids. They are not TTP. Unfortunately, the patient's Hgb did not completely respond appropriately to the transfusions. Following 4 units, the Hgb should rise 5.3-->9.3. Her post transfusion Hgb was 8.5. The patient remained at [facility] overnight for serial CBC evaluations. The following morning, her Hgb had stabilized. She was deemed safe for discharge home. She was instructed to follow up with Dr. Lord (OBGYN) as an outpatient. Physical Exam Vital Signs: Temp Pulse Resp BP Pulse Ox 98.2 F 68 17 114/60 100 07/24/18 13:18 07/24/18 13:18 07/24/18 13:18 07/24/18 13:18 07/24/18 13:18 General appearance: PRESENT: no acute distress, well-developed, well-nourished Head exam: PRESENT: atraumatic, normocephalic Eye exam: PRESENT: conjunctiva pink, EOMI, PERRLA. ABSENT: scleral icterus Ear exam: PRESENT: normal external ear exam Mouth exam: PRESENT: moist, tongue midline Neck exam: ABSENT: carotid bruit, JVD, lymphadenopathy, thyromegaly Respiratory exam: PRESENT: clear to auscultation fletcher. ABSENT: rales, rhonchi, wheezes Cardiovascular exam: PRESENT: RRR. ABSENT: diastolic murmur, rubs, systolic murmur Pulses: PRESENT: normal dorsalis pedis pul Vascular exam: PRESENT: normal capillary refill GI/Abdominal exam: PRESENT: normal bowel sounds, soft. ABSENT: distended, guarding, mass, organolmegaly, rebound, tenderness Rectal exam: PRESENT: deferred Extremities exam: PRESENT: full ROM. ABSENT: calf tenderness, clubbing, pedal edema Neurological exam: PRESENT: alert, awake, oriented to person, oriented to place, oriented to time, oriented to situation, CN II-XII grossly intact. ABSENT: motor sensory deficit Psychiatric exam: PRESENT: appropriate affect, normal mood. ABSENT: homicidal ideation, suicidal ideation Skin exam: PRESENT: dry, intact, warm. ABSENT: cyanosis, rash Results Laboratory Results: 07/24/18 08:00 07/24/18 03:36 Impressions: Pelvis Ultrasound 07/22/18 16:07 IMPRESSION: Enlarged uterus with multiple fibroids. Status: Imported from PACS Qualifiers - * PATIENT BEING DISCHARGED WITH ANY OF THE FOLLOWING DIAGNOSIS: No Acute Heart Failure Is this a Heart Failure Patient?: No
== END 2018-07-24 13:30 | disposition home or self-care (01) | DRG 812 ==
LOC: ER 15:53 → EH 20:22 → 2S 21:31
PROVIDERS: ADMIT Emergency Medicine; ATTEND Emergency Medicine
PROC: 30233N1 Transfusion of Nonautologous Red Blood Cells into Peripheral Vein, Percutaneous Approach (ICD-10-PCS; principal; 2018-07-22)
DX: D50.0 Iron deficiency anemia secondary to blood loss (chronic) (principal); D25.1 Intramural leiomyoma of uterus; D25.0 Submucous leiomyoma of uterus; N92.0 Excessive and frequent menstruation with regular cycle; F41.9 Anxiety disorder, unspecified; Z60.2 Problems related to living alone; E87.6 Hypokalemia; Z88.2 Allergy status to sulfonamides; Z88.8 Allergy status to other drugs, medicaments and biological substances; Z88.6 Allergy status to analgesic agent; Z88.3 Allergy status to other anti-infective agents; Z91.011 Allergy to milk products; Z88.0 Allergy status to penicillin; Z91.013 Allergy to seafood; Z90.49 Acquired absence of other specified parts of digestive tract; Z83.3 Family history of diabetes mellitus; Z82.49 Family history of ischemic heart disease and other diseases of the circulatory system; Z80.9 Family history of malignant neoplasm, unspecified
CPT/HCPCS: 36415; 36430; 76856; 80048; 80053; 80061; 80307; 81001; 82607; 82728; 82746; 83540; 83550; 83735; 84439; 84443; 84481; 85025; 85027; 85045; 85610; 85730; 86850; 86900; 86901; 86920; 87210; 87491; 87591; 99285; J3490; J7050; P9016

== ENCOUNTER → 2018-07-31 | Outpatient (CLI) | payer BC, OTHER ==
--- NOTE | 2018-07-31 14:49 | WOMENS IMAGING REPORT ---
EXAM DESCRIPTION: BILAT SCREENING MAMMO W/CAD COMPLETED DATE/TIME: 07/31/2018 2:02 pm REASON FOR STUDY: ROUTINE BILATERAL SCREENING;Z12.31 Z12.31 ENCNTR SCREEN MAMMOGRAM FOR MALIGNANT N EOPLASM OF ELENA COMPARISON: 04/21/2014 EXAM PARAMETERS: Standard craniocaudal and mediolateral oblique views of each breast recorded using digital acquisition. Read with the assistance of CAD. .[facility] [employer]iver Version 9.2 LIMITATIONS: None. FINDINGS: No suspicious masses, suspicious calcifications or architectural distortion. No areas of s uspicion. IMPRESSION: ASSESSMENT: Negative MAMMOGRAM. BIRADS 1 BREAST DENSITY: c. The breasts are heterogeneously dense, which may obscure small masses. BIRAD: 1 NEGATIVE RECOMMENDATION: ROUTINE SCREENING COMMENT: The patient has been notified of the results by letter per [place] requirements. Additional no tification policies are in place for contacting patient with suspicious or incomplete findings. Quality ID #[id number]: The [employer] recommends an annual screening mammogram for women aged 40 years or over. This facility utilizes a reminder system to ensure that all patients receive reminder letters, and/or direct phone calls for appointments. This includes reminders for routine scr eening mammograms, diagnostic mammograms, or other Breast Imaging Interventions when appropriate. Th is patient will be placed in the appropriate reminder system. TECHNICAL DOCUMENTATION: FINDING NUMBER: (1) ASSESSMENT: (1) JOB ID: [id number] [employer]- All Rights Reserved Reading location - IP/workstation name: [email or web address]
== END ==
LOC: WI 13:49
PROVIDERS: ATTEND Nurse Practitioner Family
DX: Z12.31 Encounter for screening mammogram for malignant neoplasm of breast (principal)
CPT/HCPCS: 77067

== ENCOUNTER 2018-08-27 07:17 | Emergency (ER) | payer BC, OTHER ==
--- NOTE | 2018-08-27 09:34 | ER Document Report ---
ED Medical Screen (RME) - General Chief Complaint: Weakness Stated Complaint: WEAKNESS Time Seen by Provider: 08/27/18 09:27 Primary Care Provider: SHAHRAM KERR FNP-C [Primary Care Provider] - Follow up as needed Mode of Arrival: Ambulatory Information source: Patient Notes: Patient presents to the emergency department with possible anemia. Patient reports she has been having heavy menses. Due to her fibroids. Patient reports she received a transfusion in July. She has been told her levels are going down. She is having the same symptoms palpitations jittery short of breath feeling weak. Patient did have an appointment with her pension manager today but came here because her symptoms. She reports they did start her on iron but she had an anaphylactic reaction to that so she is no longer on iron no complaints of fever vomiting diarrhea. I have greeted and performed a rapid initial assessment of this patient. A comprehensive ED assessment and evaluation of the patient, analysis of test results and completion of the medical decision making process will be conducted by additional ED providers. Dictation of this chart was performed using voice recognition software; therefore, there may be some unintended grammatical errors. TRAVEL OUTSIDE OF THE [place] IN LAST 30 DAYS: No - Related Data Allergies/Adverse Reactions: acetaminophen [From Darvocet-N 100] Allergy (Verified 08/27/18 07:20) aspirin [Aspirin] Allergy (Verified 08/27/18 07:20) buspirone HCl [From BuSpar] Allergy (Verified 08/27/18 07:20) clindamycin [Clindamycin] Allergy (Verified 08/27/18 07:20) codeine [Codeine] Allergy (Verified 08/27/18 07:20) erythromycin base [Erythromycin Base] Allergy (Verified 08/27/18 07:20) fluoxetine HCl [From Prozac] Allergy (Verified 08/27/18 07:20) imipramine [Imipramine] Allergy (Verified 08/27/18 07:20) nitrofurantoin [From Macrobid] Allergy (Verified 08/27/18 07:20) nitrofurantoin macrocrystalline [From Macrobid] Allergy (Verified 08/27/18 07:20) paroxetine HCl [From Paxil] Allergy (Verified 08/27/18 07:20) Penicillins Allergy (Verified 08/27/18 07:20) propoxyphene napsylate [From Darvocet-N 100] Allergy (Verified 08/27/18 07:20) Sulfa (Sulfonamide Antibiotics) Allergy (Verified 08/27/18 07:20) dairy Allergy (Uncoded 08/27/18 07:20) seafood Allergy (Uncoded 08/27/18 07:20) Past Medical History - Social History Chew tobacco use (# tins/day): No Frequency of alcohol use: None Drug Abuse: None Family history: DM, Hypertension, Malignancy - Past Medical History Cardiac Medical History: Denies: Hx Atrial Fibrillation, Hx Congestive Heart Failure, Hx Coronary Artery Disease, Hx DVT, Hx Heart Attack, Hx Hypercholesterolemia, Hx Hypertension, Hx Pulmonary Embolism Pulmonary Medical History: Denies: Hx Asthma, Hx COPD Neurological Medical History: Denies: Hx Seizures Endocrine Medical History: Denies: Hx Diabetes Mellitus Type 1, Hx Diabetes Mellitus Type 2, Hx Hyperthyroidism, Hx Hypothyroidism Renal/ Medical History: Denies: Hx Peritoneal Dialysis GI Medical History: Denies: Hx Cirrhosis, Hx Hepatitis Musculoskeltal Medical History: Denies Hx Arthritis, Denies Hx Gout Skin Medical History: Denies Hx Eczema, Denies Hx Psoriasis Psychiatric Medical History: Reports: Hx Anxiety - panic attacks Denies: Hx Depression Infectious Medical History: Denies: Hx Hepatitis Past Surgical History: Reports: Hx Section - X3, Hx Cholecystectomy, Hx Tubal Ligation - Immunizations Immunizations up to date: Yes Hx Diphtheria, Pertussis, Tetanus Vaccination: Yes Physical Exam - Vital signs Vitals: Temp Pulse Resp BP Pulse Ox 98.6 F 95 18 136/67 H 100 08/27/18 07:23 08/27/18 07:23 08/27/18 07:23 08/27/18 07:23 08/27/18 07:23 Course - Vital Signs Vital signs: Temp Pulse Resp BP Pulse Ox 98.6 F 95 18 136/67 H 100 08/27/18 07:23 08/27/18 07:23 08/27/18 07:23 08/27/18 07:23 08/27/18 07:23 Doctor's Discharge - Discharge Referrals: SHAHRAM KERR FNP-C [Primary Care Provider] - Follow up as needed
--- NOTE | 2018-08-27 09:59 | RADIOLOGY REPORT (SQ) ---
EXAM DESCRIPTION: CHEST 2 VIEWS COMPLETED DATE/TIME: 08/27/2018 9:42 am REASON FOR STUDY: sob COMPARISON: AP chest 10/01/2008 EXAM PARAMETERS: NUMBER OF VIEWS: two views TECHNIQUE: Digital Frontal and Lateral radiographic views of the chest acquired. RADIATION DOSE: NA LIMITATIONS: none FINDINGS: LUNGS AND PLEURA: No opacities, masses or pneumothorax. No pleural effusion. MEDIASTINUM AND HILAR STRUCTURES: No masses or contour abnormalities. HEART AND VASCULAR STRUCTURES: Heart normal size. No evidence for failure. BONES: No acute findings. HARDWARE: Clips right upper quadrant post cholecystectomy OTHER: No other significant finding. IMPRESSION: NO ACUTE RADIOGRAPHIC FINDING IN THE CHEST. TECHNICAL DOCUMENTATION: JOB ID: [id number] [email or web address]- All Rights Reserved Reading location - IP/workstation name: [email or web address]
--- NOTE | 2018-08-27 10:18 | EKG REPORT ---
SEVERITY:- OTHERWISE NORMAL ECG - SINUS TACHYCARDIA : Confirmed by: Rita Menjivar MD 27-Aug-2018 10:18:12
--- NOTE | 2018-08-27 10:30 | ER Document Report ---
ED General - General Chief Complaint: Weakness Stated Complaint: WEAKNESS Time Seen by Provider: 08/27/18 09:27 Primary Care Provider: JACQUES JHA MD [ACTIVE STAFF] - Follow up as needed SHAHRAM KERR FNP-C [Primary Care Provider] - Follow up as needed Mode of Arrival: Ambulatory Notes: Patient says she is feeling weak and jittery and her heart racing for the past couple of days and these are similar symptoms to what she had when she was here July 22, 2018, and found to be anemic and had to be transfused. She has been told that the anemia secondary to heavy menstrual cycles and she has fibroids. She has no other bleeding problems. She had an ultrasound done here and has followed up with a local OB doctor, Dr. Lord, and the plan is for the patient to have surgery, but she needs to get her iron level up. She is seeing a local livestock trucker, Dr. Jha, and they plan to do testing to be able to give her iron infusions. She had an appointment to see Dr. Jha this morning, but says she felt too bad to go over there and so she came here. Patient also has anxiety and is not sure if her symptoms are from low hemoglobin and iron, or for anxiety. TRAVEL OUTSIDE OF THE [place] IN LAST 30 DAYS: No - Related Data Allergies/Adverse Reactions: acetaminophen [From Darvocet-N 100] Allergy (Verified 08/27/18 07:20) aspirin [Aspirin] Allergy (Verified 08/27/18 07:20) buspirone HCl [From BuSpar] Allergy (Verified 08/27/18 07:20) clindamycin [Clindamycin] Allergy (Verified 08/27/18 07:20) codeine [Codeine] Allergy (Verified 08/27/18 07:20) erythromycin base [Erythromycin Base] Allergy (Verified 08/27/18 07:20) fluoxetine HCl [From Prozac] Allergy (Verified 08/27/18 07:20) imipramine [Imipramine] Allergy (Verified 08/27/18 07:20) nitrofurantoin [From Macrobid] Allergy (Verified 08/27/18 07:20) nitrofurantoin macrocrystalline [From Macrobid] Allergy (Verified 08/27/18 07:20) paroxetine HCl [From Paxil] Allergy (Verified 08/27/18 07:20) Penicillins Allergy (Verified 08/27/18 07:20) propoxyphene napsylate [From Darvocet-N 100] Allergy (Verified 08/27/18 07:20) Sulfa (Sulfonamide Antibiotics) Allergy (Verified 08/27/18 07:20) dairy Allergy (Uncoded 08/27/18 07:20) seafood Allergy (Uncoded 08/27/18 07:20) Past Medical History - General Information source: Patient - Social History Smoking Status: Unknown if Ever Smoked Chew tobacco use (# tins/day): No Frequency of alcohol use: None Drug Abuse: None Family History: Reviewed & Not Pertinent, CAD, DM, Hypertension, Malignancy, Other Patient has suicidal ideation: No Patient has homicidal ideation: No - Past Medical History Cardiac Medical History: Reports: Hx Heart Murmur Psychiatric Medical History: Reports: Hx Anxiety - panic attacks Denies: Hx Depression Past Surgical History: Reports: Hx Section - X3, Hx Cholecystectomy, Hx Tubal Ligation - Immunizations Immunizations up to date: Yes Hx Diphtheria, Pertussis, Tetanus Vaccination: Yes Review of Systems - Review of Systems Notes: REVIEW OF SYSTEMS: CONSTITUTIONAL : Denies fever. History of anemia. EENT: Denies eye, ear, nose or mouth or throat pain or other symptoms. CARDIOVASCULAR: Denies chest pain. Has felt "palpitations". RESPIRATORY: Denies cough, chest congestion, or shortness of breath. GASTROINTESTINAL: Denies abdominal pain or nausea, vomiting, or diarrhea. GENITOURINARY: Denies difficulty or painful urinating, urinary frequency, blood in urine. MUSCULOSKELETAL: Denies back or neck pain. Denies joint pain or swelling. SKIN: Denies rash or skin lesions. NEUROLOGICAL: Denies LOC or altered mental status. Denies headache. Denies sensory loss or motor deficits. ALL OTHER SYSTEMS REVIEWED AND NEGATIVE. Physical Exam - Vital signs Vitals: Temp Pulse Resp BP Pulse Ox 98.6 F 95 18 136/67 H 100 08/27/18 07:23 08/27/18 07:23 08/27/18 07:23 08/27/18 07:23 08/27/18 07:23 Interpretation: Normal Notes: PHYSICAL EXAMINATION: GENERAL: Well-appearing, in no acute distress. Vital signs are all normal. HEAD: Atraumatic, normocephalic. EYES: Pupils equal round and reactive to light, extraocular movements intact. ENT: oropharynx clear without exudates. Moist mucous membranes. NECK: Normal range of motion, supple. LUNGS: Breath sounds clear and equal bilaterally. HEART: Regular rate and rhythm. Grade 2/6 systolic murmur. ABDOMEN: Soft, nontender. No guarding or rebound. No masses. BACK: No tenderness throughout entire back. EXTREMITIES: Normal range of motion without pain. NEUROLOGICAL: Normal speech, normal gait. Normal sensory, motor, and reflex exams. Awake, alert, and oriented x3. Cranial nerves normal. PSYCH: Normal mood, normal affect. SKIN: Warm, dry, no rashes. Course - Vital Signs Vital signs: Temp Pulse Resp BP Pulse Ox 98.6 F 95 18 136/67 H 100 08/27/18 07:23 08/27/18 07:23 08/27/18 07:23 08/27/18 07:23 08/27/18 07:23 - Laboratory Result Diagrams: 08/27/18 10:05 08/27/18 10:05 Laboratory results interpreted by me: 08/27/18 08/27/18 10:05 10:05 RBC 3.48 L Hgb 8.8 L Hct 28.0 L MCH 25.2 L MCHC 31.3 L RDW 26.0 H Creatinine 0.51 L - Diagnostic Test Radiology results interpreted by de: 08/27/18 12:03 Patient's hemoglobin is 8.8. That is the highest level it has been since she was initially diagnosed and transfused in July. Discharge - Discharge Clinical Impression: Anemia Condition: Stable Disposition: HOME, SELF-CARE Additional Instructions: Anemia You have been found to have a significant anemia (a lower than normal amount of red blood cells). Anemia can be due to iron deficiency, vitamin deficiency, abnormal bleeding, or internal diseases. Usually, further tests are necessary to find the exact cause of the anemia. The most common cause of anemia is iron deficiency, often brought on by blood loss. This can be treated with iron supplements. If this appears to be the most likely cause, iron tablets may be prescribed even before all tests are complete. Contact the doctor at once if you note black or tarry-looking stools, bloody vomiting, shortness of breath, chest pain, or faintness. Your blood count is actually better than it has been since you were transfused in July. Your hemoglobin level was 8.8 and is above the level at which we recommend transfusions. NORMAL EXAM AND WORKUP: At this time, except for your slightly low hemoglobin of 8.8, your examination and workup show no significant abnormality. No significant abnormal physical findings were noted. All laboratory, EKG, and imaging (x-ray, CT scans, ultrasound) studies that were ordered show no significant abnormality. Although your examination and all studies that were ordered showed no significant abnormal finding, there are no examinations and no studies that are 100% accurate. There is always the possibility that some abnormality could exist and not be detected with physical examination or within the limits and capabilities of laboratory and other studies. You should return or follow up as you were instructed on your visit today for further evaluation if your symptoms do not resolve. FOLLOW-UP CARE: If you have been referred to a physician for follow-up care, call the physicians office for an appointment as you were instructed or within the next two days. If you experience worsening or a significant change in your symptoms, notify the physician immediately or return to the Emergency Department at any time for re-evaluation. Referrals: SHAHRAM KERR FNP-C [Primary Care Provider] - Follow up as needed JACQUES JHA MD [ACTIVE STAFF] - Follow up as needed
[2018-08-27 10:34] LABS: ABSOLUTE LYMPHOCYTES (AUTO) 0.9 10^3/uL (0.5-4.7); ABSOLUTE MONOCYTES (AUTO) 0.3 10^3/uL (0.1-1.4); ABSOLUTE NEUT (AUTO) 3.9 10^3/uL (1.7-8.2); BASOPHILS % (AUTO) 0.6 % (0-2); EOSINOPHILS % (AUTO) 0.3 % (0-6); HEMOGLOBIN 8.8 g/dL (12.0-15.5); LYMPHOCYTES % (AUTO) 17.8 % (13-45); MEAN CORPUSCULAR HEMOGLOBIN 25.2 pg (27.0-33.4); MEAN CORPUSCULAR HGB CONC 31.3 g/dL (32.0-36.0); MEAN CORPUSCULAR VOLUME 81 fl (80-97); MONOCYTES % (AUTO) 5.7 % (3-13); PLATELET COUNT 294 10^3/uL (150-450); RED BLOOD COUNT 3.48 10^6/uL (3.72-5.28); SEGMENTED NEUTROPHILS % (AUTO) 75.6 % (42-78); TOTAL CELLS COUNTED % (AUTO) 100 %; WHITE BLOOD COUNT 5.1 10^3/uL (4.0-10.5)
[2018-08-27 10:52] LABS: ALANINE AMINOTRANSFERASE 31 U/L (9-52); ALBUMIN 4.3 g/dL (3.5-5.0); ALKALINE PHOSPHATASE 57 U/L (38-126); ANION GAP 8 (5-19); ASPARTATE AMINO TRANSFERASE 31 U/L (14-36); BILIRUBIN,TOTAL 0.6 mg/dL (0.2-1.3); CALCIUM 9.6 mg/dL (8.4-10.2); CARBON DIOXIDE 26 mmol/L (22-30); CHLORIDE 106 mmol/L (98-107); GLUCOSE 95 mg/dL (75-110); POTASSIUM 3.7 mmol/L (3.6-5.0); SODIUM 139.7 mmol/L (137-145)
[2018-08-27 10:54] LABS: BLOOD UREA NITROGEN 7 mg/dL (7-20)
[2018-08-27 10:57] LABS: BILIRUBIN,DIRECT 0.2 mg/dL (0.0-0.4)
[2018-08-27 11:03] LABS: ANISOCYTOSIS 3+; HYPOCHROMASIA 1+; PLATELET COMMENT ADEQUATE; PLATELET LARGE PRESENT
[2018-08-27 11:04] LABS: OVALOCYTES SLIGHT
[2018-08-27 11:05] LABS: POIKILOCYTOSIS SLIGHT; TOXIC VACUOLATION PRESENT
[2018-08-27 12:21] VITALS: BP 111/77
== END 2018-08-27 12:21 | disposition home or self-care (01) ==
LOC: ER 07:17
DX: D64.9 Anemia, unspecified (principal); R53.1 Weakness; Z88.8 Allergy status to other drugs, medicaments and biological substances; Z88.1 Allergy status to other antibiotic agents; Z88.5 Allergy status to narcotic agent; Z88.2 Allergy status to sulfonamides; Z88.0 Allergy status to penicillin; Z91.013 Allergy to seafood; Z91.018 Allergy to other foods
CPT/HCPCS: 36415; 71046; 80053; 85025; 86850; 86900; 86901; 93005; 93010; 99284

== ENCOUNTER 2018-08-28 07:37 | Outpatient (CLI) | payer BC, OTHER ==
[~2018-08-28 07:37] MED LIST: DIPHENHYDRAMINE HCL 25 MG CAPSULE PO PRN; FUROSEMIDE INJ/PF 20 MG/2 ML SDV IV PRN
[2018-08-28] MEDS ORDERED: NORMAL SALINE 250 ML IV PRN (08:30)
[2018-08-28 14:35] VITALS: BP 123/56
== END 2018-08-28 14:36 | disposition home or self-care (01) ==
LOC: II 07:37 → 5TH 07:40 → II 14:36
PROVIDERS: ATTEND Internal Medicine Hematology & Oncology
PROC: 30233N1 Transfusion of Nonautologous Red Blood Cells into Peripheral Vein, Percutaneous Approach (ICD-10-PCS; principal; 2018-08-28)
DX: D64.9 Anemia, unspecified (principal)
CPT/HCPCS: 86900; 86901; 36415; 36430; 86850; 86920; P9016

== ENCOUNTER → 2018-09-11 | Outpatient (CLI) | payer BC, OTHER ==
[2018-09-11 12:00] LABS: ABSOLUTE BASOPHILS # (AUTO) 0.1 10^3/uL (0.0-0.2); ABSOLUTE LYMPHOCYTES (AUTO) 1.2 10^3/uL (0.5-4.7); ABSOLUTE MONOCYTES (AUTO) 0.3 10^3/uL (0.1-1.4); ABSOLUTE NEUT (AUTO) 2.4 10^3/uL (1.7-8.2); BASOPHILS % (AUTO) 1.3 % (0-2); EOSINOPHILS % (AUTO) 0.4 % (0-6); HEMATOCRIT 29.4 % (36.0-47.0); HEMOGLOBIN 9.4 g/dL (12.0-15.5); LYMPHOCYTES % (AUTO) 29.5 % (13-45); MEAN CORPUSCULAR HEMOGLOBIN 26.3 pg (27.0-33.4); MEAN CORPUSCULAR HGB CONC 31.9 g/dL (32.0-36.0); MEAN CORPUSCULAR VOLUME 83 fl (80-97); MONOCYTES % (AUTO) 8.7 % (3-13); PLATELET COUNT 296 10^3/uL (150-450); RED BLOOD COUNT 3.55 10^6/uL (3.72-5.28); SEGMENTED NEUTROPHILS % (AUTO) 60.1 % (42-78); TOTAL CELLS COUNTED % (AUTO) 100 %
[2018-09-11 12:21] LABS: ALANINE AMINOTRANSFERASE 29 U/L (9-52); ALBUMIN 4.3 g/dL (3.5-5.0); ALKALINE PHOSPHATASE 55 U/L (38-126); ANION GAP 6 (5-19); ASPARTATE AMINO TRANSFERASE 34 U/L (14-36); BILIRUBIN,DIRECT 0.1 mg/dL (0.0-0.4); BILIRUBIN,TOTAL 0.3 mg/dL (0.2-1.3); BLOOD UREA NITROGEN 11 mg/dL (7-20); CALCIUM 9.5 mg/dL (8.4-10.2); CARBON DIOXIDE 28 mmol/L (22-30); CHLORIDE 104 mmol/L (98-107); GLUCOSE 87 mg/dL (75-110); POTASSIUM 4.2 mmol/L (3.6-5.0); SODIUM 137.6 mmol/L (137-145); TOTAL PROTEIN 7.8 g/dL (6.3-8.2)
[2018-09-11 12:24] LABS: ANISOCYTOSIS 3+; HYPOCHROMASIA SLIGHT; OVALOCYTES SLIGHT; PLATELET COMMENT ADEQUATE; PLATELET LARGE PRESENT; POIKILOCYTOSIS SLIGHT
[2018-09-11 13:25] LABS: C-REACTIVE PROTEIN < 5.0 mg/L (<10.0)
== END ==
LOC: LAB 11:05
PROVIDERS: ATTEND Nurse Practitioner Family
DX: R25.2 Cramp and spasm (principal)
CPT/HCPCS: 36415; 80053; 82607; 82746; 85025; 86140

== ENCOUNTER 2018-10-15 09:52 | Inpatient (IN) | payer BC, OTHER ==
[2018-10-13 12:05] LABS: HEMOGLOBIN 9.5 g/dL (12.0-15.5); MEAN CORPUSCULAR HGB CONC 31.6 g/dL (32.0-36.0); MEAN CORPUSCULAR VOLUME 82 fl (80-97); PLATELET COUNT 337 10^3/uL (150-450); RED BLOOD COUNT 3.65 10^6/uL (3.72-5.28); RED CELL DISTRIBUTION WIDTH 16.4 % (11.5-14.0); WHITE BLOOD COUNT 4.2 10^3/uL (4.0-10.5)
[2018-10-13 12:12] LABS: APPEARANCE,URINE CLEAR; BILIRUBIN,URINE NEGATIVE (NEGATIVE); COLOR,URINE STRAW; GLUCOSE, URINE NEGATIVE (NEGATIVE); KETONES,URINE NEGATIVE (NEGATIVE); LEUKOCYTE ESTERASE,URINE NEGATIVE (NEGATIVE); NITRITE,URINE NEGATIVE (NEGATIVE); PROTEIN,URINE NEGATIVE (NEGATIVE); URINE SPECIFIC GRAVITY 1.008; UROBILINOGEN,URINE NEGATIVE mg/dL (<2.0)
[2018-10-13 12:30] LABS: ALBUMIN 4.3 g/dL (3.5-5.0); ALKALINE PHOSPHATASE 54 U/L (38-126); ANION GAP 9 (5-19); ASPARTATE AMINO TRANSFERASE 26 U/L (14-36); BILIRUBIN,DIRECT 0.2 mg/dL (0.0-0.4); BILIRUBIN,TOTAL 0.4 mg/dL (0.2-1.3); BLOOD UREA NITROGEN 7 mg/dL (7-20); CALCIUM 9.8 mg/dL (8.4-10.2); CARBON DIOXIDE 26 mmol/L (22-30); CHLORIDE 104 mmol/L (98-107); GLUCOSE 90 mg/dL (75-110); POTASSIUM 4.5 mmol/L (3.6-5.0)
--- NOTE | 2018-10-13 12:36 | RADIOLOGY REPORT (SQ) ---
EXAM DESCRIPTION: CHEST PA/LATERAL COMPLETED DATE/TIME: 10/13/2018 11:57 am REASON FOR STUDY: PRE-OP COMPARISON: 08/27/2018 EXAM PARAMETERS: NUMBER OF VIEWS: two views TECHNIQUE: Digital Frontal and Lateral radiographic views of the chest acquired. RADIATION DOSE: NA LIMITATIONS: none FINDINGS: LUNGS AND PLEURA: No opacities, masses or pneumothorax. No pleural effusion. MEDIASTINUM AND HILAR STRUCTURES: No masses or contour abnormalities. HEART AND VASCULAR STRUCTURES: Heart normal size. No evidence for failure. BONES: No acute findings. HARDWARE: None in the chest. OTHER: No other significant finding. IMPRESSION: NO SIGNIFICANT RADIOGRAPHIC FINDING IN THE CHEST. TECHNICAL DOCUMENTATION: JOB ID: [id number] [employer]- All Rights Reserved Reading location - IP/workstation name: [email or web address]
--- NOTE | 2018-10-13 12:42 | EKG REPORT ---
SEVERITY:- NORMAL ECG - SINUS RHYTHM : Confirmed by: Theodore Mock MD 13-Oct-2018 12:41:57
[~2018-10-15 09:52] MED LIST changes: -DIPHENHYDRAMINE HCL 25 MG CAPSULE PO PRN; -FUROSEMIDE INJ/PF 20 MG/2 ML SDV IV PRN; +GENTAMICIN SULFATE 120 MG in DEXTROSE 5%-WATER 100 ML IV PRN; +LACTATED RINGERS 1000 ML IV PRN; +LIDOCAINE 0.5% INJ-PF (5 MG/ML) 50 ML SDV SUBCUT PRN
[2018-10-15] MEDS ORDERED: METRONIDAZOLE 500 MG/NS RTU 500 MG/100 ML RTUPB IV ONE (11:52)
[2018-10-15] MEDS ORDERED: METRONIDAZOLE 500 MG/NS RTU 500 MG/100 ML RTUPB IV PRN (11:54)
[2018-10-15] MEDS ORDERED: MIDAZOLAM 2 MG/2 ML INJ ONE ×2 (12:15→12:25)
[2018-10-15] MEDS ORDERED: KETOROLAC TROMETHAMINE 60 MG/2 ML SDV ONE (12:24)
[2018-10-15] MEDS ORDERED: FENTANYL CITRATE INJ/PF 250 MCG/5 ML AMPULE ONE (12:24)
[2018-10-15] MEDS ORDERED: DEXAMETHASONE SOD PHOSPHATE INJ 4 MG/1 ML VIAL ONE (12:25)
[2018-10-15] MEDS ORDERED: ONDANSETRON HCL INJ/PF 4 MG/2 ML SDV ONE ×2 (12:25→13:34)
[2018-10-15] MEDS ORDERED: PROPOFOL INJ 200 MG/20 ML VIAL IV ONE (12:25)
--- NOTE | 2018-10-15 12:44 | EKG REPORT ---
SEVERITY:- OTHERWISE NORMAL ECG - SINUS TACHYCARDIA : Confirmed by: Theodore Mock MD 15-Oct-2018 12:44:18
[2018-10-15] MEDS ORDERED: VASOPRESSIN INJ 20 UNIT/1 ML VIAL ONE (13:02)
[2018-10-15] MEDS ORDERED: MORPHINE SULFATE 10 MG/ML INJ IV PRN (13:33)
[2018-10-15] MEDS ORDERED: DIPHENHYDRAMINE HCL 50 MG/ML VIAL IV PRN (13:33)
[2018-10-15] MEDS ORDERED: PROMETHAZINE HCL INJ 25 MG/1 ML VIAL IV PRN (13:33)
[2018-10-15] MEDS ORDERED: FENTANYL CITRATE INJ/PF 100 MCG/2 ML AMPUL IV PRN ×3 (13:33)
[2018-10-15] MEDS ORDERED: GLYCOPYRROLATE 1 MG/5 ML VIAL ONE (13:34)
[2018-10-15] MEDS ORDERED: LIDOCAINE 2% INJ-PF (20 MG/ML) 2 ML AMPUL ONE (13:34)
[2018-10-15] MEDS ORDERED: NEOSTIGMINE METHYLSULFATE 10 MG/10 ML VIAL ONE (13:34)
[2018-10-15] MEDS ORDERED: SUCCINYLCHOLINE CHLORIDE INJ 200 MG/10 ML VIAL ONE (13:34)
[2018-10-15] MEDS ORDERED: ROCURONIUM BROMIDE INJ 50 MG/5 ML VIAL IV ONE (13:34)
[2018-10-15 14:07] LABS: HEMATOCRIT 24.9 % (36.0-47.0); MEAN CORPUSCULAR HEMOGLOBIN 26.2 pg (27.0-33.4); MEAN CORPUSCULAR HGB CONC 32.2 g/dL (32.0-36.0); MEAN CORPUSCULAR VOLUME 81 fl (80-97); PLATELET COUNT 300 10^3/uL (150-450); RED BLOOD COUNT 3.06 10^6/uL (3.72-5.28); RED CELL DISTRIBUTION WIDTH 16.3 % (11.5-14.0); WHITE BLOOD COUNT 4.4 10^3/uL (4.0-10.5)
[2018-10-15] MEDS ORDERED: BUPIVACAINE INJ/PF LIPOSOME/PF 266 MG/20 ML SDV ONE (15:10)
[2018-10-15] MEDS: FENTANYL CITRATE INJ/PF 100 MCG/2 ML AMPUL ONE ×2 (16:35→16:40)
[2018-10-15] MEDS ORDERED: RINGERS SOLUTION,LACTATED 1,000 ML IV PRN (17:26)
[2018-10-15] MEDS ORDERED: HYDROMORPHONE HCL INJ/PF 2 MG/ML AMPULE ONE (17:32)
[2018-10-15] MEDS ORDERED: HYDROMORPHONE HCL INJ/PF 2 MG/ML AMPULE IV PRN (19:00)
[2018-10-15] MEDS: SIMETHICONE 80 MG TAB.CHEW PO PRN (23:20)
[2018-10-16] MEDS: SIMETHICONE 80 MG TAB.CHEW PO PRN ×2 (06:05→20:02)
--- NOTE | 2018-10-16 08:19 | PDOC PROGRESS REPORT ---
Subjective Progress Note for:: 10/16/18 Subjective:: doing well, burping, needs to pass flatus, lópez to gravity out Reason For Visit: N92.0 EXCESSIVE AND FREQUENT MENSTRUATION WITH REG Physical Exam - Physical Exam Vital Signs: Temp Pulse Resp BP Pulse Ox 98.5 F 68 18 123/61 100 10/16/18 03:25 10/16/18 03:25 10/16/18 03:25 10/16/18 03:25 10/16/18 03:25 Intake & Output 10/15/18 10/16/18 10/17/18 06:59 06:59 06:59 Intake Total 3200 Output Total 3930 Balance -730 Weight 81.19 kg General appearance: PRESENT: no acute distress, well-developed, well-nourished Head exam: PRESENT: atraumatic, normocephalic Respiratory exam: PRESENT: clear to auscultation fletcher, symmetrical, unlabored Cardiovascular exam: PRESENT: RRR. ABSENT: diastolic murmur, rubs, systolic murmur GI/Abdominal exam: PRESENT: normal bowel sounds, soft. ABSENT: distended, guarding, mass, organolmegaly, rebound, tenderness Rectal exam: PRESENT: deferred Extremities exam: PRESENT: full ROM. ABSENT: calf tenderness, clubbing, pedal edema Musculoskeletal exam: PRESENT: ambulatory Neurological exam: PRESENT: alert, awake, oriented to person, oriented to place, oriented to time, oriented to situation, CN II-XII grossly intact. ABSENT: motor sensory deficit Psychiatric exam: PRESENT: appropriate affect, normal mood. ABSENT: homicidal ideation, suicidal ideation Skin exam: PRESENT: dry, intact, warm. ABSENT: cyanosis, rash Result Laboratory Results: 10/15/18 13:50 10/13/18 11:34 10/13/18 10/15/18 11:34 13:50 WBC 4.4 RBC 3.06 L Hgb 8.0 L Hct 24.9 L MCV 81 MCH 26.2 L MCHC 32.2 RDW 16.3 H Plt Count 300 Blood Type O POSITIVE Antibody Screen TNP Impressions: Chest X-Ray 10/13/18 00:00 IMPRESSION: NO SIGNIFICANT RADIOGRAPHIC FINDING IN THE CHEST. Status: Imported from PACS Assessment & Plan - Diagnosis (1) Fibroid uterus Qualifiers: Uterine leiomyoma location: unspecified location Qualified Code(s): D25.9 - Leiomyoma of uterus, unspecified Is this a current diagnosis for this admission?: Yes Plan: Multiple fibroids and symptomatic anemia. Uterus removed. s/p abdominal hysterectomy open. Advance diet today. López removed. Plan to discharge today . (2) Hypochromic microcytic anemia Is this a current diagnosis for this admission?: Yes Plan: s/p transfusion 2 units intraop - Time Time Spent with patient: 15-24 minutes Medications reviewed and adjusted accordingly: Yes Anticipated discharge: Home Within: within 24 hours - Inpatient Certification Based on my medical assessment, after consideration of the patient's comorbidities, presenting symptoms, or acuity I expect that the services needed warrant INPATIENT care.: Yes I certify that my determination is in accordance with my understanding of Medicare's requirements for reasonable and necessary INPATIENT services [42 CFR 412.3e].: Yes Medical Necessity: Need For IV Fluids, Need for Pain Control
--- NOTE | 2018-10-16 11:37 | Operative Report ---
Operative Report DATE OF SURGERY: 10/15/18 PREOPERATIVE DIAGNOSIS: Dysfunctional Uterine Bleeding, Anemia due to chronic b lood loss, Symptomatic Fibroid Uterus. POSTOPERATIVE DIAGNOSIS: VALERIO OPERATION: Total Abdominal Hysterectomy with vertical midline incision, Bilateral salpingectomy, Left oophorectomy SURGEON: YO BENDER 1ST AUXILIARY EQUIPMENT OPERATOR: JAVI MCCRAY ANESTHESIA: GA TISSUE REMOVED OR ALTERED: uterus and cervix, multiple fibroids, bilateral fallopian tubes, left ovary COMPLICATIONS: pre surgical anemia due to chronic blood loss. 2 units PRBCs transfused intraoperatively ESTIMATED BLOOD LOSS: 600ml INTRAOPERATIVE FINDINGS: very large uterus which is malpositioned and turned with right ovary to anterior abdominal wall and left ovary and fallopian tube are positioned posteriorly. mild bladder adhesions from prior sections noted. normal clear urine output at conclusion of procedure. Left ovary with several small simple ovarian cysts which was removed. right ovary appeared normal. PROCEDURE: Anesthesiologist: Chente TRISTAN, Naina Roberson CRNA IV fluids: [3100ml] Urine output: [430ml] Indications: [48yo with very large fibroid uterus and symptomatic anemia for chronic blood loss and she has received multiple transfusions. She was also given iron infusions as outpatient but was allergic to iron infusions which had to be discontinued. She has been on progesterone for assistance with control of bleeding. Depot Lupron was offered but patient declined. She was counseled regarding the risks, benefits, alternatives and desires to proceed with planned abdominal hysterectomy. ] Procedure: The patient was taken to the operating room where general anesthesia was obtained without difficulty. She was then placed in dorsal supine position and prepped and draped in the normal sterile fashion. A Vertical midline skin incision made from the symphysis pubis to the umbilicus and then approximately 2cm above the umbilicus. Findings as noted above upon entry into the abdomen. At this time the Left cornua was grasped and the right fallopian tube and utero- ovarian ligament and round ligaments were cauterized and transected in the usual fashion. The Left ovary and fallopian tube were then excised with the ligasure in the usual fashion. At this time dilute vasopressin was injected overy the multiple large fibroids and multiple myomectomies were performed in order to access normal anatomy and restore the uterus to proper positioning. After myomectomies the LigaSure device was used to clamp/cut and cauterize the remainder of the uterine vessels in anterior and posterior leaves of the broad ligament as well as cardinal and uterosacral ligaments were coagulated and transected in a serial fashion down to the level of the uterine artery on the left and the right. The uterine artery was then identified bilaterally and cauterized and transected in the usual fashion with the LigaSure device. The anterior leaf of the broad ligament was then dissected to the midline establishing a bladder flap with a combination of blunt and sharp dissection. Sharp dissection made superiorly bilaterally to the level of the internal os of the cervix and then curved Zeenat was then placed bilaterally just below the cervix and the cervix and uterus was then amputated from the vaginal cuff. THe vaginal cuff was then closed with serial 2-0 vicryl sutures and interceed was placed carefully overy the cuff. After removal of the uterus and the cervix attention was turned to the right fallopian tubes which were serially cauterized and transected and then removed. The right ovary remains in place. The abdomen was irrigated and all sites noted to be hemostatic. The rectus muscles, peritoneum and fasia was then closed in mass with PDS suture. The remainder of the wound was closed in a multilayer fashion to decrease deadspace in the subcuticular layer. THe skin was then closed with 3-0 monocryl and overlyin Exofin tape was applied for additional wound closure. Exparel (approximately 40ml of total fluid placed in wound) was placed in the usual fashion to help with pain postoperatively. Gentamycin and Flagyl given preoperatively. Sponge lap needle and instrument counts were correct 3. The patient tolerated the procedure well and was taken to the recovery area awake and in stable condition.
[2018-10-16] MEDS ORDERED: HYDROCODONE/ACETAMINOPHEN 5-325 MG TABLET PO PRN ×2 (16:06)
[2018-10-17] MEDS: SIMETHICONE 80 MG TAB.CHEW PO PRN ×3 (00:27→14:01)
[2018-10-17 15:16] VITALS: BP 114/67
--- NOTE | 2018-10-17 19:26 | PDOC PROGRESS REPORT ---
Subjective Progress Note for:: 10/17/18 Subjective:: Pt denies any SOB/CP fevers or chills. Pt denies any nausea or vomiting. Pt is tolerating a regular diet. Pt is OOB ambulating and voiding without difficulty. Pain controlled without pain meds. Patient is not taking narcotics for pain control. Pt admits to having flatus without difficulty or forcing. Reason For Visit: N92.0 EXCESSIVE AND FREQUENT MENSTRUATION WITH REG: Postop note Physical Exam - Physical Exam Vital Signs: Temp Pulse Resp BP Pulse Ox 98.4 F 75 20 114/67 100 10/17/18 18:01 10/17/18 18:01 10/17/18 18:01 10/17/18 18:01 10/17/18 18:01 Intake & Output 10/16/18 10/17/18 10/18/18 06:59 06:59 06:59 Intake Total 3200 150 600 Output Total 3930 600 Balance -730 -450 600 Weight 81.19 kg 85 kg General appearance: PRESENT: no acute distress, cooperative, well-developed, well-nourished Head exam: PRESENT: atraumatic, normocephalic Eye exam: PRESENT: EOMI Mouth exam: PRESENT: moist Vascular exam: PRESENT: normal capillary refill GI/Abdominal exam: PRESENT: soft - non-distended, tenderness - appropriately tender second to surgery, vertical skin laparotomy, other - incsions is clean dry and intact Rectal exam: PRESENT: deferred Neurological exam: PRESENT: alert, oriented to person, oriented to place, oriented to time, oriented to situation, normal gait Psychiatric exam: PRESENT: normal mood Skin exam: PRESENT: intact, warm Result Laboratory Results: 10/15/18 13:50 10/13/18 11:34 Impressions: Chest X-Ray 10/13/18 00:00 IMPRESSION: NO SIGNIFICANT RADIOGRAPHIC FINDING IN THE CHEST. Assessment & Plan - Diagnosis (2) Fibroid uterus Qualifiers: Uterine leiomyoma location: unspecified location Qualified Code(s): D25.9 - Leiomyoma of uterus, unspecified Is this a current diagnosis for this admission?: Yes (3) Menorrhagia with regular cycle Is this a current diagnosis for this admission?: Yes - Plan Summary Plan Summary: Pt desires discharge home today. Discharge instructions given Pt already has 2wk postop appointment scheduled with Dr. Lord Discussed narcotics and since pt is not taking any for pain control, no prescription given Bleeding precautions given Infection precautions given Thrombotic precautions given
--- NOTE | 2018-10-18 09:48 | PDOC DISCHARGE SUMMARY ---
General - Admit/Disc Date/PCP Admission Date/Primary Care Provider: 10/15/18 09:52 KRISTIAN CASON Discharge Date: 10/17/18 - Discharge Diagnosis (1) Fibroid uterus Is this a current diagnosis for this admission?: Yes (2) Status post abdominal hysterectomy Is this a current diagnosis for this admission?: Yes - Additional Information Resuscitation Status: Full Code Discharge Diet: Regular Discharge Activity: Balance Activity w/Rest, No Lifting Over 10 Pounds, No Lifting/Push/Pulling, Pelvic Rest, Slowly Increase Activity, No tub bath Home Medications: Medroxyprogesterone Acetate [Provera] 10 mg PO DAILY MDD STOP TAKING AFTER SURGERY 10/12/18 History of Present Illness Patient complains of: pt c/o heavy vaginal bleeding and pain admitted for hysterectomy History of Present Illness: FAUSTINO CHAUDHRY is a 48 year old female Hospital Course Hospital Course: pt had routine hospital care. tolerating regular diet and bowl and bladder function good Physical Exam - Physical Exam Vital Signs: Temp Pulse Resp BP Pulse Ox 98.4 F 75 20 114/67 100 10/17/18 18:01 10/17/18 18:01 10/17/18 18:01 10/17/18 18:01 10/17/18 18:01 Intake & Output 10/17/18 10/18/18 10/19/18 06:59 06:59 06:59 Intake Total 150 840 Output Total 600 Balance -450 840 Weight 85 kg Result Laboratory Results: 10/15/18 13:50 10/13/18 11:34 Impressions: Chest X-Ray 10/13/18 00:00 IMPRESSION: NO SIGNIFICANT RADIOGRAPHIC FINDING IN THE CHEST. Plan Discharge Plan: d/c follow up in the office or as needed Time Spent: Less than 30 Minutes Acute Heart Failure - Is this a Heart Failure Patient?: No
== END 2018-10-17 18:35 | disposition home or self-care (01) | DRG 743 ==
LOC: INOR 09:52 → 2N 18:00
PROVIDERS: ADMIT Student in an Organized Health Care Education/Training Program; ATTEND Student in an Organized Health Care Education/Training Program
PROC: 0UT70ZZ Resection of Bilateral Fallopian Tubes, Open Approach (ICD-10-PCS; 2018-10-15)
PROC: 0UT10ZZ Resection of Left Ovary, Open Approach (ICD-10-PCS; 2018-10-15)
PROC: 30233N1 Transfusion of Nonautologous Red Blood Cells into Peripheral Vein, Percutaneous Approach (ICD-10-PCS; 2018-10-15)
PROC: 0UT90ZZ Resection of Uterus, Open Approach (ICD-10-PCS; principal; 2018-10-15 12:00)
DX: D25.9 Leiomyoma of uterus, unspecified (principal); D50.0 Iron deficiency anemia secondary to blood loss (chronic); N83.202 Unspecified ovarian cyst, left side; N92.0 Excessive and frequent menstruation with regular cycle; K66.0 Peritoneal adhesions (postprocedural) (postinfection); N94.6 Dysmenorrhea, unspecified; F41.9 Anxiety disorder, unspecified
CPT/HCPCS: 36415; 36430; 71046; 80053; 81001; 81025; 840; 85027; 86850; 86900; 86901; 86920; 86922; 88307; 93005; 93010; C9290; J0330; J1100; J1170; J1580; J1885; J2250; J2405; J2704; J2710; J3010; J3490; J7060; P9016

== ENCOUNTER 2019-02-06 13:28 | Emergency (ER) | payer BC, OTHER ==
[2019-02-06] MEDS ORDERED: ONDANSETRON 4 MG TAB.RAPDIS PO ONE (13:57)
[2019-02-06] MEDS ORDERED: LORAZEPAM 0.5 MG TABLET PO ONE (13:57)
--- NOTE | 2019-02-06 13:59 | ER Document Report ---
HPI - HPI Time Seen by Provider: 02/06/19 13:50 Pain Level: 0 Notes: Patient is a 48-year-old female presenting with chief complaint of nausea and anxiety. Patient reports that yesterday there was a's smell in her house, she states that she found out that someone had spilled chemicals in her laundry room. Patient reports she is very nervous that she may have been exposed to it in the air. Patient states that she did clean up the chemicals, states it was a pesticide but denies touching it or having direct contact with it. Patient reports history of high anxiety and states that she believes these are related. - REPRODUCTIVE Reproductive: DENIES: : Past Medical History - General Information source: Patient - Social History Smoking Status: Never Smoker Chew tobacco use (# tins/day): No Frequency of alcohol use: None Drug Abuse: None Family History: Malignancy, CAD, DM, Hypertension, Reviewed & Not Pertinent, Other Patient has suicidal ideation: No Patient has homicidal ideation: No - Past Medical History Cardiac Medical History: Reports: Hx Heart Murmur Denies: Hx Atrial Fibrillation, Hx Congestive Heart Failure, Hx Coronary Artery Disease, Hx DVT, Hx Heart Attack, Hx Hypercholesterolemia, Hx Hypertension, Hx Pulmonary Embolism Pulmonary Medical History: Denies: Hx Asthma, Hx Bronchitis, Hx COPD, Hx Pneumonia Neurological Medical History: Denies: Hx Cerebrovascular Accident, Hx Seizures Endocrine Medical History: Denies: Hx Diabetes Mellitus Type 1, Hx Diabetes Mellitus Type 2, Hx Hyperthyroidism, Hx Hypothyroidism Renal/ Medical History: Denies: Hx Peritoneal Dialysis GI Medical History: Denies: Hx Cirrhosis, Hx Hepatitis Musculoskeletal Medical History: Denies Hx Arthritis, Denies Hx Gout Skin Medical History: Denies Hx Eczema, Denies Hx Psoriasis Psychiatric Medical History: Reports: Hx Anxiety - panic attacks Denies: Hx Depression Infectious Medical History: Denies: Hx Hepatitis Past Surgical History: Reports: Hx Section - X3, Hx Cholecystectomy, Hx Tubal Ligation - Immunizations Immunizations up to date: Yes Hx Diphtheria, Pertussis, Tetanus Vaccination: Yes Vertical Provider Document - CONSTITUTIONAL Notes: PHYSICAL EXAMINATION: GENERAL: Well-appearing, well-nourished and in no acute distress. HEAD: Atraumatic, normocephalic. EYES: Pupils equal round extraocular movements intact, conjunctiva are normal. ENT: Nares patent NECK: Normal range of motion LUNGS: No respiratory distress Abdomen: Soft, nontender, no guarding or rebound. Musculoskeletal: Normal range of motion NEUROLOGICAL: Normal speech, normal gait. PSYCH: Normal mood, normal affect. SKIN: Warm, Dry, normal turgor, no rashes or lesions noted. - INFECTION CONTROL TRAVEL OUTSIDE OF THE [place] IN LAST 30 DAYS: No Course - Re-evaluation Re-evalutation: Patient has no abdominal pain, vomiting, diarrhea or fever, she has nausea and anxiety related to the situation. We will medicate her at this time and reevaluate. No indication for full work-up. Patient is in agreements with this plan. Patient symptoms have resolved. She will be discharged home at this time. - Vital Signs Vital signs: Temp Pulse Resp BP Pulse Ox 98.4 F 103 H 18 163/75 H 100 02/06/19 13:42 02/06/19 13:42 02/06/19 13:42 02/06/19 13:42 02/06/19 13:42 Discharge - Discharge Clinical Impression: Nausea, Anxiety Condition: Stable Disposition: HOME, SELF-CARE Additional Instructions: Please take medication as prescribed for nausea. If you continue to have anxiety symptoms please follow-up with your primary care provider or a mental health provider. Prescriptions: Ondansetron [Zofran Odt 4 mg Tablet] 1 - 2 tab PO Q4H PRN #15 tab.rapdis PRN Reason: For Nausea/Vomiting Referrals: JACQUES JEREZ MD [ACTIVE STAFF] - Follow up as needed
[2019-02-06 15:50] VITALS: BP 129/75
== END 2019-02-06 15:50 | disposition home or self-care (01) ==
LOC: ER 13:28
DX: R11.0 Nausea (principal); F41.9 Anxiety disorder, unspecified; Z90.49 Acquired absence of other specified parts of digestive tract; Z98.51 Tubal ligation status
CPT/HCPCS: 99284; S0119

== ENCOUNTER 2020-01-04 14:41 | Emergency (ER) | payer BC, OTHER ==
[2020-01-04] MEDS ORDERED: LORAZEPAM 0.5 MG TABLET PO ONE (14:57)
[2020-01-04 15:04] VITALS: BP 142/82
--- NOTE | 2020-01-04 15:04 | ER Document Report ---
ED General - General Chief Complaint: Anxiety Stated Complaint: BLOOD PRESSURE PROBLEM Time Seen by Provider: 01/04/20 14:56 Primary Care Provider: SHAHRAM KERR FNP-C [Primary Care Provider] - Follow up as needed Mode of Arrival: Ambulatory Information source: Patient Notes: 49-year-old female presents to ED for complaint of anxiety. Patient states she went to her primary care doctor and they did vital signs and was very elevated blood pressure and pulse. She states the doctor was concerned so he sent her to the emergency room. She is not on blood pressure medications. While in the emergency room her manual blood pressure was 142/82 and her pulse was 102. I did give her 0.5 of Ativan and discharged home to follow-up with her primary care by telephone in the morning. Patient states she is going to get a referral to a mental health provider also. I did explain to her she is always welcome to come back if she has another problem. She states all she needed was something for the anxiety and her doctor sent her because of her blood pressure. Constitutional: Negative for fever. HENT: Negative for sore throat. Eyes: Negative for visual changes. Cardiovascular: Negative for chest pain. Blood pressure was 142/82 manually pulse was 102. Patient states she feels a lot less anxious now than she did over there now that she is spoken with someone. She states her blood pressure goes up when she does get anxious. She states she does plan to go to mental health provider to get on medication for anxiety. Respiratory: Negative for shortness of breath. Gastrointestinal: Negative for abdominal pain, vomiting or diarrhea. Genitourinary: Negative for dysuria. Musculoskeletal: Negative for back pain. Skin: Negative for rash. Neurological: Negative for headaches, weakness or numbness. 10 point ROS negative except as marked above and in HPI. PHYSICAL EXAMINATION: GENERAL: Well-appearing, well-nourished and in no acute distress. HEAD: Atraumatic, normocephalic. EYES: Pupils equal round extraocular movements intact, conjunctiva are normal. ENT: Nares patent NECK: Normal range of motion LUNGS: No respiratory distress Musculoskeletal: Normal range of motion NEUROLOGICAL: Normal speech, normal gait. PSYCH: Normal mood, normal affect. Anxiety SKIN: Warm, Dry, normal turgor, no rashes or lesions noted. TRAVEL OUTSIDE OF THE [place] IN LAST 30 DAYS: No - HPI Onset: Other - Anxiety intermittent Onset/Duration: Intermittent Quality of pain: No pain Severity: None Pain Level: Denies Associated symptoms: None Exacerbated by: Other - States because of everything is going on in the world is why she is anxious Relieved by: Denies Similar symptoms previously: Yes - Related Data Allergies/Adverse Reactions: acetaminophen [From Darvocet-N 100] Allergy (Verified 01/04/20 14:49) aspirin [Aspirin] Allergy (Verified 01/04/20 14:49) buspirone HCl [From BuSpar] Allergy (Verified 01/04/20 14:49) clindamycin [Clindamycin] Allergy (Verified 01/04/20 14:49) codeine [Codeine] Allergy (Verified 01/04/20 14:49) erythromycin base [Erythromycin Base] Allergy (Verified 01/04/20 14:49) fluoxetine HCl [From Prozac] Allergy (Verified 01/04/20 14:49) imipramine [Imipramine] Allergy (Verified 01/04/20 14:49) nitrofurantoin [From Macrobid] Allergy (Verified 01/04/20 14:49) nitrofurantoin macrocrystalline [From Macrobid] Allergy (Verified 01/04/20 14:49) oxycodone [From Percocet] Allergy (Verified 01/04/20 14:49) paroxetine HCl [From Paxil] Allergy (Verified 01/04/20 14:49) Penicillins Allergy (Verified 01/04/20 14:49) propoxyphene napsylate [From Darvocet-N 100] Allergy (Verified 01/04/20 14:49) Sulfa (Sulfonamide Antibiotics) Allergy (Verified 01/04/20 14:49) meperidine [From Demerol] Adverse Reaction (Verified 01/04/20 14:49) dairy Allergy (Uncoded 01/04/20 14:49) seafood Allergy (Uncoded 01/04/20 14:49) Past Medical History - General Information source: Patient - Social History Smoking Status: Never Smoker Chew tobacco use (# tins/day): No Frequency of alcohol use: None Drug Abuse: None Lives with: Family Family History: Malignancy, CAD, DM, Hypertension, Reviewed & Not Pertinent, Other Patient has homicidal ideation: No - Past Medical History Cardiac Medical History: Reports: Hx Heart Murmur Pulmonary Medical History: Reports: None EENT Medical History: Reports: None Neurological Medical History: Reports: None Endocrine Medical History: Reports: None Renal/ Medical History: Reports: None Malignancy Medical History: Reports: None GI Medical History: Reports: None Musculoskeletal Medical History: Reports None Psychiatric Medical History: Reports: Hx Anxiety - panic attacks Traumatic Medical History: Reports: None Infectious Medical History: Reports: None Past Surgical History: Reports: Hx Section - X3, Hx Cholecystectomy, Hx Tubal Ligation - Immunizations Immunizations up to date: Yes Hx Diphtheria, Pertussis, Tetanus Vaccination: Yes Physical Exam - Vital signs Vitals: Temp Pulse Resp BP Pulse Ox 98.6 F 114 H 18 178/102 H 100 01/04/20 14:47 01/04/20 14:47 01/04/20 14:47 01/04/20 14:47 01/04/20 14:47 Course - Re-evaluation Re-evalutation: 01/04/20 15:07 Patient was treated with Ativan 0.5 mg p.o. 1 time. She was instructed to pl ease follow-up with her primary care doctor and with mental health provider as we discussed. Patient verbalized understanding and agreement with treatment plan patient was discharged home. - Vital Signs Vital signs: Temp Pulse Resp BP Pulse Ox 98.6 F 114 H 18 178/102 H 100 01/04/20 14:47 01/04/20 14:47 01/04/20 14:47 01/04/20 14:47 01/04/20 14:47 Discharge - Discharge Clinical Impression: Anxiety, Blood pressure elevated without history of HTN Condition: Stable Disposition: HOME, SELF-CARE Instructions: Anxiety ([facility]) Additional Instructions: Anxiety The physician feels that some of your health problems are being caused by anxiety. Anxiety affects your health in many ways. Anxiety alone can cause palpitations, sweats, chest pains, abdominal pains, shortness of breath, and headaches. It contributes to ulcer disease, high blood pressure, irritable bowel syndrome, and has been shown to cause flare-ups of many other diseases. Anxiety is not a simple disorder to treat. If the anxiety is due to recent life stresses, you may simply need time to "work through" the changes. If the anxiety is due to an underlying unhappiness with yourself or due to psychiatric disturbance, professional help will be needed. Your physician can refer you for further help if needed. Anti-anxiety medication is occasionally given if the stress is acute or if you are having trouble sleeping. Chronic or frequent use of these medications is not a good idea because the body becomes reliant on it, preventing you from dealing with life's normal stresses. HIGH BLOOD PRESSURE, NOT TREAT: When your blood pressure was taken today it was elevated. Today's reading was ___142/82 . We do not think you need to have your blood pressure treated today. Sometimes, stress or illness causes a temporary elevation of your blood pressure. We suggest that you get your blood pressure measured again during the next few days to see if this elevated blood pressure is more than a temporary abnormality. If your blood pressure is greater than 150/90 on each occasion, you must have treatment. Some simple things you can do to help are: If you have blood pressure medicine but aren't using it regularly, start taking it again. Get some aerobic exercise for at least 20 minutes on a daily basis. (See your doctor before beginning a new exercise program.) Eat a low-fat diet. Lose excess weight. Avoid salty foods and avoid adding salt to any of the foods you eat. Avoid diet pills, decongestants, "energizing" herbs, and other medicines that elevate blood pressure. If left untreated, hypertension greatly enhances your risk for developing heart disease and strokes. Please don't ignore this problem. Benzodiazepines You have been given a benzodiazepine medication. Examples of this type of medicine include Valium, Xanax, Librium, Ativan, and Halcion. Benzodiazepines have many uses. Medications of this type are used for insomnia, anxiety, muscle spasms, seizures, and drug and alcohol withdrawal. You may become very drowsy when you first take the medication. You should not drive or operate machinery while under its effects. Do not combine the medication with alcohol, or with any other medication without talking to your doctor. Do not take if without specific instruction from your draw bench operator helper. Some benzodiazepines may have harmful interactions with oral antifungal medicines such as ketoconazole, itraconazole, and nefazodone. If you are taking an antifungal medicine, discuss this with your doctor before taking benzodiazepines. FOLLOW-UP CARE: If you have been referred to a physician for follow-up care, call the physicians office for an appointment as you were instructed or within the next two days. If you experience worsening or a significant change in your symptoms, notify the physician immediately or return to the Emergency Department at any ti me for re-evaluation. Forms: Elevated Blood Pressure Referrals: SHAHRAM KERR FNP-C [Primary Care Provider] - Follow up as needed
== END 2020-01-04 15:10 | disposition home or self-care (01) ==
LOC: ER 14:41
DX: F41.9 Anxiety disorder, unspecified (principal); I10 Essential (primary) hypertension; Z88.8 Allergy status to other drugs, medicaments and biological substances; Z88.1 Allergy status to other antibiotic agents; Z88.6 Allergy status to analgesic agent; Z88.5 Allergy status to narcotic agent; Z88.2 Allergy status to sulfonamides; Z91.013 Allergy to seafood; Z91.018 Allergy to other foods
CPT/HCPCS: 99283

== ENCOUNTER 2020-01-10 20:23 | Emergency (ER) | payer BC ==
--- NOTE | 2020-01-10 20:48 | ER Document Report ---
ED Medical Screen (RME) - General Chief Complaint: High Blood Pressure Stated Complaint: BLOOD PRESSURE ISSUES Time Seen by Provider: 01/10/20 20:33 TRAVEL OUTSIDE OF THE [place] IN LAST 30 DAYS: No - HPI Notes: 01/10/20 20:46 49-year-old female with past medical history of anxiety to the emergency department with complaints of elevated blood pressure that has been going on for 1 week. She states that she went to her doctor's office today and it was 200/100s. She decided to come to the emergency department. She states she felt like her heart was racing. She also states that she feels like her muscles have been drained and she is very fatigued and she has a headache. She states that she denies any blurry vision, chest pain, shortness of breath. She states that she may think this is her anxiety. She states she has had a lot of stressors at home and has been having trouble coping. She denies any SI or HI. She states several years ago she was in cognitive behavioral therapy for her anxiety which helped her but she is not been able to follow-up recently for that. She states that her primary care doctor had given her half a milligram of lorazepam to take as needed. She is did take 1 about an hour ago and she feels like it helped some. Brief medical screening exam reveals an anxious patient. She has rapid speech and she is often wringing her hands. Her blood pressure is improved since her initial reading and is now 163/100 in triage. However, her heart rate remains nearly in the 120s. I performed a brief medical screening exam on the patient determined that the patient needs further evaluation and management by main side provider. I have placed initial orders to help expedite care. - Related Data Allergies/Adverse Reactions: acetaminophen [From Darvocet-N 100] Allergy (Verified 01/10/20 20:39) aspirin [Aspirin] Allergy (Verified 01/10/20 20:39) buspirone HCl [From BuSpar] Allergy (Verified 01/10/20 20:39) clindamycin [Clindamycin] Allergy (Verified 01/10/20 20:39) codeine [Codeine] Allergy (Verified 01/10/20 20:39) erythromycin base [Erythromycin Base] Allergy (Verified 01/10/20 20:39) fluoxetine HCl [From Prozac] Allergy (Verified 01/10/20 20:39) imipramine [Imipramine] Allergy (Verified 01/10/20 20:39) nitrofurantoin [From Macrobid] Allergy (Verified 01/10/20 20:39) nitrofurantoin macrocrystalline [From Macrobid] Allergy (Verified 01/10/20 20:39) oxycodone [From Percocet] Allergy (Verified 01/10/20 20:39) paroxetine HCl [From Paxil] Allergy (Verified 01/10/20 20:39) Penicillins Allergy (Verified 01/10/20 20:39) propoxyphene napsylate [From Darvocet-N 100] Allergy (Verified 01/10/20 20:39) Sulfa (Sulfonamide Antibiotics) Allergy (Verified 01/10/20 20:39) meperidine [From Demerol] Adverse Reaction (Verified 01/10/20 20:39) dairy Allergy (Uncoded 01/04/20 14:49) seafood Allergy (Uncoded 01/04/20 14:49) Past Medical History - Social History Frequency of alcohol use: None Drug Abuse: None Family history: Malignancy, DM, Hypertension - Past Medical History Cardiac Medical History: Reports: Hx Heart Murmur Denies: Hx Atrial Fibrillation, Hx Congestive Heart Failure, Hx Coronary Artery Disease, Hx DVT, Hx Heart Attack, Hx Hypercholesterolemia, Hx Hypertension, Hx Pulmonary Embolism Pulmonary Medical History: Denies: Hx Asthma, Hx Bronchitis, Hx COPD, Hx Pneumonia Neurological Medical History: Denies: Hx Cerebrovascular Accident, Hx Seizures Endocrine Medical History: Denies: Hx Diabetes Mellitus Type 1, Hx Diabetes Mellitus Type 2, Hx Hyperthyroidism, Hx Hypothyroidism Renal/ Medical History: Denies: Hx Peritoneal Dialysis GI Medical History: Denies: Hx Cirrhosis, Hx Hepatitis Musculoskeltal Medical History: Denies Hx Arthritis, Denies Hx Gout Skin Medical History: Denies Hx Eczema, Denies Hx Psoriasis Psychiatric Medical History: Reports: Hx Anxiety - panic attacks Denies: Hx Depression Infectious Medical History: Denies: Hx Hepatitis Past Surgical History: Reports: Hx Section - X3, Hx Cholecystectomy, Hx Tubal Ligation - Immunizations Immunizations up to date: Yes Hx Diphtheria, Pertussis, Tetanus Vaccination: Yes Physical Exam - Vital signs Vitals: Temp Pulse Resp BP Pulse Ox 98.4 F 127 H 12 181/96 H 100 01/10/20 20:32 01/10/20 20:32 01/10/20 20:32 01/10/20 20:32 01/10/20 20:32 Course - Vital Signs Vital signs: Temp Pulse Resp BP Pulse Ox 98.4 F 127 H 12 181/96 H 100 01/10/20 20:32 01/10/20 20:32 01/10/20 20:32 01/10/20 20:32 01/10/20 20:32
[2020-01-10 21:11] LABS: ABSOLUTE BASOPHILS # (AUTO) 0.1 10^3/uL (0.0-0.2); ABSOLUTE EOSINOPHILS # (AUTO) 0.1 10^3/uL (0.0-0.6); ABSOLUTE LYMPHOCYTES (AUTO) 1.7 10^3/uL (0.5-4.7); ABSOLUTE MONOCYTES (AUTO) 0.4 10^3/uL (0.1-1.4); ABSOLUTE NEUT (AUTO) 3.4 10^3/uL (1.7-8.2); EOSINOPHILS % (AUTO) 1.1 % (0-6); HEMATOCRIT 38.4 % (36.0-47.0); HEMOGLOBIN 13.6 g/dL (12.0-15.5); LYMPHOCYTES % (AUTO) 30.3 % (13-45); MEAN CORPUSCULAR HGB CONC 35.5 g/dL (32.0-36.0); MEAN CORPUSCULAR VOLUME 96 fl (80-97); MONOCYTES % (AUTO) 7.9 % (3-13); PLATELET COUNT 254 10^3/uL (150-450); RED CELL DISTRIBUTION WIDTH 12.7 % (11.5-14.0); SEGMENTED NEUTROPHILS % (AUTO) 59.7 % (42-78); TOTAL CELLS COUNTED % (AUTO) 100 %; WHITE BLOOD COUNT 5.7 10^3/uL (4.0-10.5)
[2020-01-10 21:28] LABS: ALBUMIN 4.8 g/dL (3.5-5.0); ALKALINE PHOSPHATASE 75 U/L (38-126); ANION GAP 13 (5-19); ASPARTATE AMINO TRANSFERASE 35 U/L (14-36); BILIRUBIN,DIRECT 0.3 mg/dL (0.0-0.4); BILIRUBIN,TOTAL 0.7 mg/dL (0.2-1.3); BLOOD UREA NITROGEN 9 mg/dL (7-20); CARBON DIOXIDE 26 mmol/L (22-30); CHLORIDE 100 mmol/L (98-107); GLUCOSE 109 mg/dL (75-110); TOTAL PROTEIN 8.2 g/dL (6.3-8.2)
--- NOTE | 2020-01-10 21:37 | RADIOLOGY REPORT (SQ) ---
EXAM DESCRIPTION: X-RAY CHEST- TWO VIEWS CLINICAL HISTORY: Fatigue COMPARISON: 10/13/18 TECHNIQUE: 2 views of the chest FINDINGS: There are no discrete air space infiltrates, pneumothoraces or pleural effusions. The pulmonary vascularity is normal. The cardiomediastinal silhouette is normal in size. Osseus structures are stable. Prominent presumed gaseous segment of bowel in the right upper quadrant overlies surgical clips. IMPRESSION: There are no acute lung parenchymal findings. Prominent presumed gaseous segment of bowel in the right upper quadrant overlies surgical clips. Consider dedicated abdominal imaging if indicated.
--- NOTE | 2020-01-10 23:22 | ER Document Report ---
ED Blood Pressure Problem - General Chief Complaint: High Blood Pressure Stated Complaint: BLOOD PRESSURE ISSUES Time Seen by Provider: 01/10/20 20:33 Mode of Arrival: Ambulatory Information source: Patient TRAVEL OUTSIDE OF THE [place] IN LAST 30 DAYS: No - HPI Notes: Patient is a 49 y/o female with a history of anxiety who presents with high blood pressure. She reports that her BP was 186/104 around 7PM this evening. She endorses feeling overwhelmingly anxious and fatigue but denies chest pain, shortness of breath, headache, dizziness, blurred vision, nausea, and vomiting. She was seen in the ED 6 days ago for the same symptoms. She was seen by her PCP prior to coming to the ED with a BP of ~200/100. Her BP came down overtime and she was given 1mg of ativan and was discharged home. Patient states she was recently prescribed 0.5mg of ativan PRN by her PCP. She reports increased stressors in her life for the past 2-3 months that are related to her relationship and job. She denies any suicidal or homicidal ideation. She has an appointment for cognitive behavioral therapy on 01/17/2020. She denies tobacco, alcohol and recreational drug use. She has a hx of hysterectomy with partial oophrectomy. - Related Data Allergies/Adverse Reactions: acetaminophen [From Darvocet-N 100] Allergy (Verified 01/10/20 20:39) aspirin [Aspirin] Allergy (Verified 01/10/20 20:39) buspirone HCl [From BuSpar] Allergy (Verified 01/10/20 20:39) clindamycin [Clindamycin] Allergy (Verified 01/10/20 20:39) codeine [Codeine] Allergy (Verified 01/10/20 20:39) erythromycin base [Erythromycin Base] Allergy (Verified 01/10/20 20:39) fluoxetine HCl [From Prozac] Allergy (Verified 01/10/20 20:39) imipramine [Imipramine] Allergy (Verified 01/10/20 20:39) nitrofurantoin [From Macrobid] Allergy (Verified 01/10/20 20:39) nitrofurantoin macrocrystalline [From Macrobid] Allergy (Verified 01/10/20 20:39) oxycodone [From Percocet] Allergy (Verified 11/02/20 20:39) paroxetine HCl [From Paxil] Allergy (Verified 01/10/20 20:39) Penicillins Allergy (Verified 01/10/20 20:39) propoxyphene napsylate [From Darvocet-N 100] Allergy (Verified 01/10/20 20:39) Sulfa (Sulfonamide Antibiotics) Allergy (Verified 01/10/20 20:39) meperidine [From Demerol] Adverse Reaction (Verified 01/10/20 20:39) dairy Allergy (Uncoded 01/04/20 14:49) seafood Allergy (Uncoded 01/04/20 14:49) Past Medical History - General Information source: Patient - Social History Smoking Status: Former Smoker Frequency of alcohol use: None Drug Abuse: None Family History: Reviewed & Not Pertinent, CAD, DM, Hypertension, Malignancy - Pancreatic and colon, Other - Past Medical History Cardiac Medical History: Reports: Hx Heart Murmur Denies: Hx Atrial Fibrillation, Hx Congestive Heart Failure, Hx Coronary Artery Disease, Hx DVT, Hx Heart Attack, Hx Hypercholesterolemia, Hx Hypertension, Hx Pulmonary Embolism Pulmonary Medical History: Denies: Hx Asthma, Hx Bronchitis, Hx COPD, Hx Pneumonia Neurological Medical History: Denies: Hx Cerebrovascular Accident, Hx Seizures Endocrine Medical History: Denies: Hx Diabetes Mellitus Type 1, Hx Diabetes Mellitus Type 2, Hx Hyperthyroidism, Hx Hypothyroidism Renal/ Medical History: Denies: Hx Peritoneal Dialysis GI Medical History: Denies: Hx Cirrhosis, Hx Hepatitis Musculoskeletal Medical History: Denies Hx Arthritis, Denies Hx Gout Skin Medical History: Denies Hx Eczema, Denies Hx Psoriasis Psychiatric Medical History: Reports: Hx Anxiety - panic attacks Denies: Hx Depression Infectious Medical History: Denies: Hx Hepatitis Past Surgical History: Reports: Hx Section - X3, Hx Cholecystectomy, Hx Tubal Ligation - Immunizations Immunizations up to date: Yes Hx Diphtheria, Pertussis, Tetanus Vaccination: Yes Review of Systems - Review of Systems Constitutional: No symptoms reported EENT: No symptoms reported Cardiovascular: No symptoms reported Respiratory: No symptoms reported Gastrointestinal: No symptoms reported Genitourinary: No symptoms reported Female Genitourinary: No symptoms reported Musculoskeletal: No symptoms reported Skin: No symptoms reported Hematologic/Lymphatic: No symptoms reported Neurological/Psychological: See HPI Physical Exam - Vital signs Vitals: Temp Pulse Resp BP Pulse Ox 98.4 F 127 H 12 181/96 H 100 01/10/20 20:32 01/10/20 20:32 01/10/20 20:32 01/10/20 20:32 01/10/20 20:32 - Notes Notes: PHYSICAL EXAMINATION: VITALS: Vitals reviewed - hypertensive and tachycardic. GENERAL: Well-appearing, well-nourished and in no acute distress. HEAD: Atraumatic, normocephalic. EYES: Pupils equal, round, and reactive to light, extraocular movements intact, sclera anicteric, conjunctiva are normal. ENT: Nares patent. Moist mucous membranes. Oropharynx clear without exudates. NECK: Normal range of motion, supple without lymphadenopathy. LUNGS: Breath sounds clear to auscultation bilaterally and equal. No wheezes, rales, or rhonchi. HEART: Tachycardia with regular rhythm without murmurs. ABDOMEN: Soft, nontender, normoactive bowel sounds. No guarding, no rebound. No masses appreciated. EXTREMITIES: Normal range of motion, no pitting or edema. No cyanosis. NEUROLOGICAL: No focal neurological deficits. Moves all extremities spontaneously and on command. PSYCH: Normal mood, normal affect. SKIN: Warm, Dry, normal turgor, no rashes or lesions noted. Course - Re-evaluation Re-evalutation: Patient is a 49 y/o female with a hx of anxiety who presents with high blood pressure and anxiety. Patient denies any other symptoms. Initial BP and HR of 178/102 and 114. On exam, patient is tachycardic with a regular rhythm. Lungs clear to auscultation bilaterally; abdomen soft and nontender. EKG shows sinus tachycardia. CBC and CMP are unremarkable and within normal limits. Troponin is negative. Chest XR shows no acute lung parenchymal findings. Prominent presumed gaseous segment of bowel in the right upper quadrant overlies surgical clips. Consider dedicated abdominal imaging if indicated. Patient reassessed and she denies any abdominal symptoms and abdominal exam is normal. Discussed XR results with patient and advised her to follow up with her primary care provider regarding this. Abdominal return precautions given. As patient has asymptomatic blood pressure with anxiety, I feel the patient is safe for discharge as long as she has prompt follow up with her primary care provider. Patient has a good support system at home and is scheduled to see a therapist in one week. Blood pressure return precaution and follow up instructions given. Patient understands and is in agreement with plan. - Vital Signs Vital signs: Temp Pulse Resp BP Pulse Ox 98.4 F 127 H 16 170/100 H 100 01/10/20 20:32 01/10/20 20:32 01/10/20 22:29 01/10/20 22:29 01/10/20 22:29 - Laboratory Result Diagrams: 01/10/20 20:56 01/10/20 20:56 Laboratory results interpreted by me: 01/10/20 20:56 MCH 34.0 H - Diagnostic Test Radiology reviewed: Image reviewed, Reports reviewed Radiology results interpreted by me: Chest X-Ray 01/10/20 20:45 IMPRESSION: There are no acute lung parenchymal findings. Prominent presumed gaseous segment of bowel in the right upper quadrant overlies surgical clips. Consider dedicated abdominal imaging if indicated. - EKG Interpretation by Me Additional EKG results interpreted by me: Sinus tachycardia with a rate of 109. QTc 442. Normal axis. No T wave inversions or ST segment changes in consecutive leads. Discharge - Discharge Clinical Impression: Anxiety, Blood pressure elevated without history of HTN Condition: Stable Disposition: HOME, SELF-CARE Additional Instructions: Follow up with your primary care regarding your anxiety and high blood pressure. Please return or follow up with your primary care provider immediately if you begin to experience chest pain, shortness of breath, headache, abdominal pain, persistent vomiting or fever. Anxiety The physician feels that some of your health problems are being caused by anxiety. Anxiety affects your health in many ways. Anxiety alone can cause palpitations, sweats, chest pains, abdominal pains, shortness of breath, and headaches. It contributes to ulcer disease, high blood pressure, irritable bowel syndrome, and has been shown to cause flare-ups of many other diseases. Anxiety is not a simple disorder to treat. If the anxiety is due to recent life stresses, you may simply need time to "work through" the changes. If the anxiety is due to an underlying unhappiness with yourself or due to psychiatric disturbance, professional help will be needed. Your physician can refer you for further help if needed. Anti-anxiety medication is occasionally given if the stress is acute or if you are having trouble sleeping. Chronic or frequent use of these medications is not a good idea because the body becomes reliant on it, preventing you from dealing with life's normal stresses. Forms: Elevated Blood Pressure Referrals: [facility] [Provider Group] - Follow up as needed
[2020-01-10 23:31] VITALS: BP 164/95
--- NOTE | 2020-01-11 16:37 | EKG REPORT ---
SEVERITY:- BORDERLINE ECG - SINUS TACHYCARDIA PROBABLE LEFT ATRIAL ABNORMALITY : Confirmed by: Jorge Betancur MD 11-Jan-2020 16:36:01
== END 2020-01-10 23:36 | disposition home or self-care (01) ==
LOC: ER 20:23
DX: F41.9 Anxiety disorder, unspecified (principal); R03.0 Elevated blood-pressure reading, without diagnosis of hypertension; R00.0 Tachycardia, unspecified; R53.83 Other fatigue; Z87.891 Personal history of nicotine dependence; Z88.8 Allergy status to other drugs, medicaments and biological substances; Z88.1 Allergy status to other antibiotic agents; Z88.6 Allergy status to analgesic agent; Z88.5 Allergy status to narcotic agent; Z88.0 Allergy status to penicillin; Z91.018 Allergy to other foods; Z91.013 Allergy to seafood; Z88.2 Allergy status to sulfonamides
CPT/HCPCS: 36415; 71046; 80053; 83735; 84484; 85025; 93005; 93010; 99285